=== PATIENT | female | born 1945 | race Caucasian/White ===

== ENCOUNTER 2017-11-29 15:40 | Inpatient (IN) ==
[2017-11-29] MEDS ORDERED: ALBUTEROL/IPRATROPIUM 3 ML NEB RESP TX PRN (16:11)
[2017-11-29 16:32] LABS: Basophils % 0.4 % (0.0-0.8); Eosinophils # 0.3 10*3/uL (0.0-0.87); Hematocrit 37.8 VOL% (35.7-47.0); Hemoglobin 12.5 GM/DL (12.0-16.0); Immature Granulocytes % 0.4 %; Immature Granulocytes Absolute 0.04 #; Lymphocytes # 1.4 10*3/uL (1.4-4.0); Lymphocytes % 14.3 % (21.3-54.2); Mean Corpuscular HGB Conc 33.1 GM/DL (32-36); Mean Corpuscular Hemoglobin 30 PG (27-34); Mean Corpuscular Volume 90.6 FL (87-102); Mean Platelet Volume 9.8 FL (9.6-12.0); Monocytes # 0.5 10*3/uL (0.11-0.8); Monocytes % 5.2 % (1.7-12.7); Neutrophils # 7.5 10*3/uL (1.4-7.4); Neutrophils % 76.7 % (38.7-73.9); Platelet Count 243 T/CUMM (130-400); Red Blood Count 4.17 MC/CUMM (3.8-5.5); Red Cell Distribution Width 14.8 % (9.3-17.3); White Blood Count 9.7 T/CUMM (4-12)
[2017-11-29 17:01] LABS: Albumin 3.6 G/DL (3.4-5.0); Bilirubin,Total 0.5 MG/DL (0.2-1.0); Calcium 9.1 MG/DL (8.5-10.1); Magnesium 2.1 MG/DL (1.8-2.4); Potassium 4.1 MMOL/L (3.5-5.1); Thyroid Stimulating Hormone 0.412 uIU/ml (0.358-3.74); Total Protein 6.8 G/DL (6.4-8.3)
[2017-11-29] MEDS: DEXTROSE 5% NACL 0.45% 1,000 ML IV SCH (17:18)
[2017-11-29] MEDS: LEVOFLOXACIN INJ 500 MG in PREMIX 1 EACH IV SCH (17:18)
[2017-11-29] MEDS: cefTAZidime 1,000 MG in SYRINGE 1 EACH IV SCH (18:11)
[2017-11-29] MEDS: ALBUTEROL/IPRATROPIUM 3 ML NEB RESP TX SCH (19:48)
[2017-11-29] MEDS: DORNASE ALFA 2.5 MG/2.5 ML VIAL RESP TX SCH (19:54)
[2017-11-29 20:05] LABS: Apearance,Urine CLEAR (Clear); Bilirubin,Urine Negative (Negative); Blood, Urine Negative (Negative); Glucose,Urine (UA) Negative (Negative); Ketones,Urine Negative (Negative); Nitrite,Urine Negative (Negative); Protein,Urine Negative; RBC,Urine 1 /HPF (0-4); Urine Color Straw (Yellow); Urine Specific Gravity 1.004 (1.001-1.035); Urine Urobilinogen < 2.0 EU/DL (0.2-1.0); WBC,Urine <1 /HPF (0-6)
[2017-11-29] MEDS ORDERED: ALBUTEROL/IPRATROPIUM 3 ML NEB RESP TX SCH (21:00)
[2017-11-29] MEDS: MAGNESIUM CHLORIDE 64 MG TABLET PO SCH (22:06)
[2017-11-29] MEDS: CALCIUM (CARBONATE) 600 MG TABLET PO SCH (22:06)
[2017-11-29] MEDS: GABAPENTIN 300 MG CAPSULE PO SCH (22:06)
[2017-11-29] MEDS: TEMAZEPAM 15 MG CAPSULE PO SCH (22:07)
[2017-11-29] MEDS: ATORVASTATIN 40 MG TABLET PO SCH (22:07)
[2017-11-29] MEDS: GLUCOSAMINE 500 MG TABLET PO SCH (22:07)
[2017-11-29] MEDS: TAMSULOSIN 0.4 MG CAPSULE PO SCH (22:07)
[2017-11-29] MEDS: PANTOPRAZOLE 40 MG TABLET PO SCH (22:08)
[2017-11-30] MEDS: ALBUTEROL/IPRATROPIUM 3 ML NEB RESP TX SCH ×4 (00:40→19:24)
[2017-11-30] MEDS: cefTAZidime 1,000 MG in SYRINGE 1 EACH IV SCH ×2 (01:20→10:09)
[2017-11-30] MEDS: DEXTROSE 5% NACL 0.45% 1,000 ML IV SCH ×3 (02:19→16:29)
[2017-11-30] MEDS: LEVOTHYROXINE 100 MCG TABLET PO SCH (05:53)
[2017-11-30] MEDS: DORNASE ALFA 2.5 MG/2.5 ML VIAL RESP TX SCH ×2 (07:18→19:24)
[2017-11-30 07:19] LABS: Basophils % 0.4 % (0.0-0.8); Eosinophils # 0.3 10*3/uL (0.0-0.87); Eosinophils % 4.1 % (0.00-10.9); Hematocrit 34.1 VOL% (35.7-47.0); Immature Granulocytes % 0.4 %; Immature Granulocytes Absolute 0.03 #; Lymphocytes # 1.2 10*3/uL (1.4-4.0); Lymphocytes % 15.1 % (21.3-54.2); Mean Corpuscular HGB Conc 32.3 GM/DL (32-36); Mean Corpuscular Hemoglobin 30 PG (27-34); Mean Corpuscular Volume 92.2 FL (87-102); Mean Platelet Volume 10.2 FL (9.6-12.0); Monocytes # 0.5 10*3/uL (0.11-0.8); Monocytes % 6.5 % (1.7-12.7); Neutrophils % 73.5 % (38.7-73.9); Platelet Count 196 T/CUMM (130-400); Red Cell Distribution Width 14.9 % (9.3-17.3); White Blood Count 8.1 T/CUMM (4-12)
[2017-11-30 07:42] LABS: Calcium 8.4 MG/DL (8.5-10.1); Magnesium 2.1 MG/DL (1.8-2.4); Osmolality,Calculated 281.1 MOS/KG (273-304); Potassium 3.6 MMOL/L (3.5-5.1)
[2017-11-30] MEDS ORDERED: NON-FORMULARY MEDICATION (Ticagrelor [Brilinta] 60 MG) PO SCH (09:00)
[2017-11-30] MEDS: MONTELUKAST 10 MG TABLET PO SCH (09:57)
[2017-11-30] MEDS: DILTIAZEM 60 MG TABLET PO SCH (09:57)
[2017-11-30] MEDS: FLUoxetine 20 MG CAPSULE PO SCH (09:57)
[2017-11-30] MEDS: GABAPENTIN 100 MG CAPSULE PO SCH (09:57)
[2017-11-30] MEDS: FOLIC ACID 1 MG TABLET PO SCH (09:57)
[2017-11-30] MEDS: PANTOPRAZOLE 40 MG TABLET PO SCH ×2 (09:58→21:06)
[2017-11-30] MEDS: TAMSULOSIN 0.4 MG CAPSULE PO SCH ×2 (09:58→21:04)
[2017-11-30] MEDS: GLUCOSAMINE 500 MG TABLET PO SCH ×2 (09:58→21:04)
[2017-11-30] MEDS: MULTIVITAMIN (CENTRUM) TABLET PO SCH (09:58)
[2017-11-30] MEDS: CALCIUM (CARBONATE) 600 MG TABLET PO SCH ×2 (09:58→21:03)
[2017-11-30] MEDS: ASPIRIN CHEW 81 MG TABLET PO SCH (09:58)
[2017-11-30] MEDS: LEVOFLOXACIN INJ 500 MG in PREMIX 1 EACH IV SCH (16:28)
[2017-11-30] MEDS: ATORVASTATIN 40 MG TABLET PO SCH (21:05)
[2017-11-30] MEDS: GABAPENTIN 300 MG CAPSULE PO SCH (21:06)
[2017-11-30] MEDS: TEMAZEPAM 15 MG CAPSULE PO SCH (21:08)
[2017-11-30] MEDS: MAGNESIUM CHLORIDE 64 MG TABLET PO SCH (21:09)
[2017-12-01] MEDS: ALBUTEROL/IPRATROPIUM 3 ML NEB RESP TX SCH ×4 (02:23→19:33)
[2017-12-01] MEDS: DEXTROSE 5% NACL 0.45% 1,000 ML IV SCH ×3 (05:03→16:45)
[2017-12-01] MEDS: LEVOTHYROXINE 100 MCG TABLET PO SCH (06:31)
[2017-12-01] MEDS: DORNASE ALFA 2.5 MG/2.5 ML VIAL RESP TX SCH ×2 (07:26→19:37)
[2017-12-01] MEDS: GLUCOSAMINE 500 MG TABLET PO SCH ×2 (09:44→21:01)
[2017-12-01] MEDS: FLUoxetine 20 MG CAPSULE PO SCH (09:44)
[2017-12-01] MEDS: MONTELUKAST 10 MG TABLET PO SCH (09:44)
[2017-12-01] MEDS: CALCIUM (CARBONATE) 600 MG TABLET PO SCH ×2 (09:44→21:01)
[2017-12-01] MEDS: TAMSULOSIN 0.4 MG CAPSULE PO SCH ×2 (09:45→21:01)
[2017-12-01] MEDS: FOLIC ACID 1 MG TABLET PO SCH (09:45)
[2017-12-01] MEDS: GABAPENTIN 100 MG CAPSULE PO SCH (09:45)
[2017-12-01] MEDS: DILTIAZEM 60 MG TABLET PO SCH (09:45)
[2017-12-01] MEDS: MULTIVITAMIN (CENTRUM) TABLET PO SCH (09:45)
[2017-12-01] MEDS: ASPIRIN CHEW 81 MG TABLET PO SCH (09:46)
[2017-12-01] MEDS: PANTOPRAZOLE 40 MG TABLET PO SCH ×2 (09:46→21:01)
[2017-12-01] MEDS: LEVOFLOXACIN INJ 500 MG in PREMIX 1 EACH IV SCH (16:40)
[2017-12-01] MEDS: ATORVASTATIN 40 MG TABLET PO SCH (21:01)
[2017-12-01] MEDS: MAGNESIUM CHLORIDE 64 MG TABLET PO SCH (21:01)
[2017-12-01] MEDS: TEMAZEPAM 15 MG CAPSULE PO SCH (21:01)
[2017-12-01] MEDS: GABAPENTIN 300 MG CAPSULE PO SCH (21:01)
[2017-12-02] MEDS: ALBUTEROL/IPRATROPIUM 3 ML NEB RESP TX SCH ×4 (01:02→19:16)
[2017-12-02] MEDS: DEXTROSE 5% NACL 0.45% 1,000 ML IV SCH ×2 (02:20→12:08)
[2017-12-02] MEDS: LEVOTHYROXINE 100 MCG TABLET PO SCH (06:04)
[2017-12-02] MEDS: DORNASE ALFA 2.5 MG/2.5 ML VIAL RESP TX SCH ×2 (07:33→19:16)
[2017-12-02] MEDS: DILTIAZEM 60 MG TABLET PO SCH (09:16)
[2017-12-02] MEDS: MONTELUKAST 10 MG TABLET PO SCH (09:17)
[2017-12-02] MEDS: GLUCOSAMINE 500 MG TABLET PO SCH ×2 (09:17→20:35)
[2017-12-02] MEDS: CALCIUM (CARBONATE) 600 MG TABLET PO SCH ×2 (09:17→20:36)
[2017-12-02] MEDS: PANTOPRAZOLE 40 MG TABLET PO SCH ×2 (09:18→20:36)
[2017-12-02] MEDS: ASPIRIN CHEW 81 MG TABLET PO SCH (09:18)
[2017-12-02] MEDS: GABAPENTIN 100 MG CAPSULE PO SCH (09:18)
[2017-12-02] MEDS: FOLIC ACID 1 MG TABLET PO SCH (09:18)
[2017-12-02] MEDS: MULTIVITAMIN (CENTRUM) TABLET PO SCH (09:18)
[2017-12-02] MEDS: TAMSULOSIN 0.4 MG CAPSULE PO SCH ×2 (09:18→20:36)
[2017-12-02] MEDS: FLUoxetine 20 MG CAPSULE PO SCH (09:18)
[2017-12-02] MEDS: LEVOFLOXACIN INJ 500 MG in PREMIX 1 EACH IV SCH (19:27)
[2017-12-02] MEDS: TEMAZEPAM 15 MG CAPSULE PO SCH (20:36)
[2017-12-02] MEDS: MAGNESIUM CHLORIDE 64 MG TABLET PO SCH (20:36)
[2017-12-02] MEDS: ATORVASTATIN 40 MG TABLET PO SCH (20:36)
[2017-12-02] MEDS: GABAPENTIN 300 MG CAPSULE PO SCH (20:36)
[2017-12-03] MEDS: ALBUTEROL/IPRATROPIUM 3 ML NEB RESP TX SCH ×4 (01:00→19:19)
[2017-12-03] MEDS: LEVOTHYROXINE 100 MCG TABLET PO SCH (06:17)
[2017-12-03 07:03] LABS: Basophils # 0.1 10*3/uL (0.0-0.2); Basophils % 0.6 % (0.0-0.8); Eosinophils # 0.5 10*3/uL (0.0-0.87); Hematocrit 36.1 VOL% (35.7-47.0); Hemoglobin 11.6 GM/DL (12.0-16.0); Immature Granulocytes % 0.4 %; Immature Granulocytes Absolute 0.03 #; Lymphocytes # 1.4 10*3/uL (1.4-4.0); Mean Corpuscular HGB Conc 32.1 GM/DL (32-36); Mean Corpuscular Hemoglobin 30 PG (27-34); Mean Platelet Volume 10.3 FL (9.6-12.0); Monocytes # 0.6 10*3/uL (0.11-0.8); Monocytes % 7.7 % (1.7-12.7); Neutrophils # 5.2 10*3/uL (1.4-7.4); Neutrophils % 67.3 % (38.7-73.9); Platelet Count 196 T/CUMM (130-400); Red Blood Count 3.88 MC/CUMM (3.8-5.5); Red Cell Distribution Width 15.5 % (9.3-17.3); White Blood Count 7.8 T/CUMM (4-12)
[2017-12-03 07:09] LABS: PT Patient Result 10.5 SECS; Partial Thromboplastin Time 27.1 SECS (0-40)
[2017-12-03] MEDS ORDERED: BENZONATATE 100 MG CAPSULE PO ONE (07:30)
[2017-12-03] MEDS ORDERED: diphenhydrAMINE 50 MG/1 ML VIAL IM ONE (07:30)
[2017-12-03] MEDS ORDERED: LIDOCAINE 1% 20 ML VIAL MISC INJ ONE (08:00)
[2017-12-03] MEDS ORDERED: LIDOCAINE 2% VISCOUS 100 ML BOTTLE SWISH/SPIT ONE (08:00)
[2017-12-03] MEDS ORDERED: MIDAZOLAM 2 MG/2 ML VIAL IV ONE (08:00)
[2017-12-03] MEDS ORDERED: LIDOCAINE 2% 20 ML VIAL RESP TX ONE (08:00)
[2017-12-03] MEDS: DORNASE ALFA 2.5 MG/2.5 ML VIAL RESP TX SCH ×2 (08:15→19:19)
[2017-12-03] MEDS ORDERED: METHOTREXATE 2.5 MG TABLET PO SCH (09:00)
[2017-12-03] MEDS ORDERED: MIDAZOLAM 2 MG/2 ML VIAL ONE (09:39)
[2017-12-03] MEDS: MULTIVITAMIN (CENTRUM) TABLET PO SCH (12:45)
[2017-12-03] MEDS: DILTIAZEM 60 MG TABLET PO SCH (12:45)
[2017-12-03] MEDS: FLUoxetine 20 MG CAPSULE PO SCH (12:46)
[2017-12-03] MEDS: ASPIRIN CHEW 81 MG TABLET PO SCH (12:46)
[2017-12-03] MEDS: CALCIUM (CARBONATE) 600 MG TABLET PO SCH ×2 (12:46→20:49)
[2017-12-03] MEDS: GLUCOSAMINE 500 MG TABLET PO SCH ×2 (12:46→20:50)
[2017-12-03] MEDS: MONTELUKAST 10 MG TABLET PO SCH (12:46)
[2017-12-03] MEDS: FOLIC ACID 1 MG TABLET PO SCH (12:46)
[2017-12-03] MEDS: TAMSULOSIN 0.4 MG CAPSULE PO SCH ×2 (12:46→20:50)
[2017-12-03] MEDS: PANTOPRAZOLE 40 MG TABLET PO SCH ×2 (12:46→20:50)
[2017-12-03] MEDS: GABAPENTIN 100 MG CAPSULE PO SCH (12:57)
[2017-12-03] MEDS: MEROPENEM 1,000 MG in SYRINGE 1 EACH IV SCH ×2 (14:40→20:51)
[2017-12-03] MEDS: ATORVASTATIN 40 MG TABLET PO SCH (20:49)
[2017-12-03] MEDS: TEMAZEPAM 15 MG CAPSULE PO SCH (20:50)
[2017-12-03] MEDS: GABAPENTIN 300 MG CAPSULE PO SCH (20:50)
[2017-12-03] MEDS: MAGNESIUM CHLORIDE 64 MG TABLET PO SCH (20:50)
[2017-12-04] MEDS: ALBUTEROL/IPRATROPIUM 3 ML NEB RESP TX SCH ×4 (00:14→19:14)
[2017-12-04] MEDS: MEROPENEM 1,000 MG in SYRINGE 1 EACH IV SCH ×3 (04:05→20:39)
[2017-12-04] MEDS: LEVOTHYROXINE 100 MCG TABLET PO SCH (06:02)
[2017-12-04] MEDS: DORNASE ALFA 2.5 MG/2.5 ML VIAL RESP TX SCH ×2 (08:11→19:26)
[2017-12-04] MEDS: FOLIC ACID 1 MG TABLET PO SCH (09:17)
[2017-12-04] MEDS: MULTIVITAMIN (CENTRUM) TABLET PO SCH (09:17)
[2017-12-04] MEDS: CALCIUM (CARBONATE) 600 MG TABLET PO SCH ×2 (09:17→20:38)
[2017-12-04] MEDS: PANTOPRAZOLE 40 MG TABLET PO SCH ×2 (09:17→20:39)
[2017-12-04] MEDS: TAMSULOSIN 0.4 MG CAPSULE PO SCH ×2 (09:17→20:38)
[2017-12-04] MEDS: GLUCOSAMINE 500 MG TABLET PO SCH ×2 (09:17→20:38)
[2017-12-04] MEDS: GABAPENTIN 100 MG CAPSULE PO SCH (09:17)
[2017-12-04] MEDS: FLUoxetine 20 MG CAPSULE PO SCH (09:17)
[2017-12-04] MEDS: DILTIAZEM 60 MG TABLET PO SCH (09:17)
[2017-12-04] MEDS: ASPIRIN CHEW 81 MG TABLET PO SCH (16:38)
[2017-12-04] MEDS: MONTELUKAST 10 MG TABLET PO SCH (16:38)
[2017-12-04] MEDS: MAGNESIUM CHLORIDE 64 MG TABLET PO SCH (20:38)
[2017-12-04] MEDS: TEMAZEPAM 15 MG CAPSULE PO SCH (20:38)
[2017-12-04] MEDS: GABAPENTIN 300 MG CAPSULE PO SCH (20:38)
[2017-12-04] MEDS: DOCUSATE SODIUM 100 MG CAPSULE PO SCH (20:39)
[2017-12-04] MEDS: ATORVASTATIN 40 MG TABLET PO SCH (20:39)
[2017-12-05] MEDS: ALBUTEROL/IPRATROPIUM 3 ML NEB RESP TX SCH ×4 (00:29→20:10)
[2017-12-05] MEDS: MEROPENEM 1,000 MG in SYRINGE 1 EACH IV SCH ×3 (04:30→20:27)
[2017-12-05] MEDS: LEVOTHYROXINE 100 MCG TABLET PO SCH (06:13)
[2017-12-05] MEDS: DORNASE ALFA 2.5 MG/2.5 ML VIAL RESP TX SCH ×2 (07:38→20:10)
[2017-12-05] MEDS: MONTELUKAST 10 MG TABLET PO SCH (09:16)
[2017-12-05] MEDS: MULTIVITAMIN (CENTRUM) TABLET PO SCH (09:16)
[2017-12-05] MEDS: FOLIC ACID 1 MG TABLET PO SCH (09:16)
[2017-12-05] MEDS: DILTIAZEM 60 MG TABLET PO SCH (09:16)
[2017-12-05] MEDS: GLUCOSAMINE 500 MG TABLET PO SCH ×2 (09:17→20:26)
[2017-12-05] MEDS: FLUoxetine 20 MG CAPSULE PO SCH (09:17)
[2017-12-05] MEDS: GABAPENTIN 100 MG CAPSULE PO SCH (09:17)
[2017-12-05] MEDS: CALCIUM (CARBONATE) 600 MG TABLET PO SCH ×2 (09:17→20:26)
[2017-12-05] MEDS: ASPIRIN CHEW 81 MG TABLET PO SCH (09:17)
[2017-12-05] MEDS: TAMSULOSIN 0.4 MG CAPSULE PO SCH ×2 (09:17→20:26)
[2017-12-05] MEDS: PANTOPRAZOLE 40 MG TABLET PO SCH ×2 (09:17→20:26)
[2017-12-05] MEDS: cefTAZidime 1,000 MG in SYRINGE 1 EACH IV SCH (17:02)
[2017-12-05] MEDS: GABAPENTIN 300 MG CAPSULE PO SCH (20:26)
[2017-12-05] MEDS: ATORVASTATIN 40 MG TABLET PO SCH (20:26)
[2017-12-05] MEDS: MAGNESIUM CHLORIDE 64 MG TABLET PO SCH (20:26)
[2017-12-05] MEDS: DOCUSATE SODIUM 100 MG CAPSULE PO SCH (20:26)
[2017-12-05] MEDS: TEMAZEPAM 15 MG CAPSULE PO SCH (20:27)
[2017-12-06] MEDS: ALBUTEROL/IPRATROPIUM 3 ML NEB RESP TX SCH ×3 (00:48→14:24)
[2017-12-06] MEDS: MEROPENEM 1,000 MG in SYRINGE 1 EACH IV SCH ×2 (03:48→11:47)
[2017-12-06] MEDS: cefTAZidime 1,000 MG in SYRINGE 1 EACH IV SCH ×2 (06:36→13:20)
[2017-12-06] MEDS: LEVOTHYROXINE 100 MCG TABLET PO SCH (06:36)
[2017-12-06] MEDS: DORNASE ALFA 2.5 MG/2.5 ML VIAL RESP TX SCH (07:32)
[2017-12-06] MEDS: GABAPENTIN 100 MG CAPSULE PO SCH (09:20)
[2017-12-06] MEDS: MONTELUKAST 10 MG TABLET PO SCH (09:20)
[2017-12-06] MEDS: FLUoxetine 20 MG CAPSULE PO SCH (09:20)
[2017-12-06] MEDS: DILTIAZEM 60 MG TABLET PO SCH (09:21)
[2017-12-06] MEDS: CALCIUM (CARBONATE) 600 MG TABLET PO SCH (09:21)
[2017-12-06] MEDS: PANTOPRAZOLE 40 MG TABLET PO SCH (09:21)
[2017-12-06] MEDS: ASPIRIN CHEW 81 MG TABLET PO SCH (09:21)
[2017-12-06] MEDS: FOLIC ACID 1 MG TABLET PO SCH (09:21)
[2017-12-06] MEDS: GLUCOSAMINE 500 MG TABLET PO SCH (09:21)
[2017-12-06] MEDS: MULTIVITAMIN (CENTRUM) TABLET PO SCH (09:21)
[2017-12-06] MEDS: TAMSULOSIN 0.4 MG CAPSULE PO SCH (09:21)
[2017-12-06] MEDS ORDERED: ENOXAPARIN 40 MG/0.4 ML SYRINGE SUBCUT ONE (11:15)
[2017-12-06 16:39] VITALS: BP 148/64
== END 2017-12-06 14:15 | disposition home or self-care (01) | DRG 166 ==
LOC: N.5E 16:01
PROVIDERS: ADMIT Internal Medicine Pulmonary Disease; ATTEND Internal Medicine Pulmonary Disease

== ENCOUNTER 2018-08-23 11:36 | Inpatient (IN) ==
[2018-08-23] MEDS ORDERED: ALBUTEROL/IPRATROPIUM 3 ML NEB RESP TX PRN (11:40)
[2018-08-23] MEDS ORDERED: POTASSIUM CHLORIDE RIDER 10 MEQ in PREMIX 1 EACH IV PRN (11:53)
[2018-08-23] MEDS ORDERED: DEXTROSE 5% NACL 0.45% 1,000 ML IV SCH (12:00)
[2018-08-23 12:37] LABS: Calcium 9.1 MG/DL (8.5-10.1); Osmolality,Calculated 281.1 MOS/KG (273-304)
[2018-08-23] MEDS ORDERED: DILTIAZEM CD 240 MG CAPSULE PO ONE (13:09)
[2018-08-23] MEDS: FUROSEMIDE 20 MG/2 ML VIAL IV SCH (13:48)
[2018-08-23] MEDS: cefTAZidime 1,000 MG in SYRINGE 1 EACH IV SCH ×2 (13:49→22:21)
[2018-08-23] MEDS: MEROPENEM 500 MG in SODIUM CHLORIDE 0.9% 100 ML IV SCH ×2 (13:54→21:10)
[2018-08-23] MEDS ORDERED: INFLUENZA VIRUS VACCINE 0.5 ML SYRINGE IM ONE (14:24)
[2018-08-23] MEDS: ALBUTEROL/IPRATROPIUM 3 ML NEB RESP TX SCH ×2 (14:57→19:09)
[2018-08-23] MEDS ORDERED: POTASSIUM IODIDE ORAL SOLN 1,000 MG/ML BOTTLE PO SCH (15:00)
[2018-08-23] MEDS: POTASSIUM CHLORIDE 20 MEQ TABLET PO PRN ×2 (15:45→21:27)
[2018-08-23] MEDS: APIXABAN 5 MG TABLET PO SCH ×2 (15:45→21:05)
[2018-08-23] MEDS ORDERED: DILTIAZEM 100 MG VIAL.ADD IV ONE (16:28)
[2018-08-23] MEDS ORDERED: DIGOXIN 0.5 MG/2 ML AMP IV ONE (17:27)
[2018-08-23] MEDS: DILTIAZEM INJ 100 MG in SODIUM CHLORIDE 0.9% 100 ML IV SCH (18:11)
[2018-08-23] MEDS: DEXT 5% NACL 0.45% KCL 20 MEQ 20 MEQ/1,000 ML BAG IV SCH (18:12)
[2018-08-23] MEDS: DORNASE ALFA 2.5 MG/2.5 ML VIAL RESP TX SCH (19:09)
[2018-08-23 19:13] LABS: Apearance,Urine CLEAR (Clear); Bilirubin,Urine Negative (Negative); Blood, Urine Negative (Negative); Glucose,Urine (UA) Negative (Negative); Ketones,Urine Negative (Negative); Mucus,Urine Occasional /LPF (Occasional); Nitrite,Urine Negative (Negative); Protein,Urine Negative; RBC,Urine 1 /HPF (0-4); Squamous Epithelial Cell,Urine Occasional /HPF (0-10); Urine Color Yellow (Yellow); Urine Specific Gravity 1.006 (1.001-1.035); Urine Urobilinogen < 2.0 EU/DL (0.2-1.0); WBC,Urine 7 /HPF (0-6)
[2018-08-23] MEDS ORDERED: NON-FORMULARY MEDICATION (Gluc Su/Chondro Su A/Vit C/Mn [Glucosamine Chondroitin Tab] 1 EA PO SCH (21:00)
[2018-08-23] MEDS ORDERED: TICAGRELOR 60 MG PO SCH (21:00)
[2018-08-23] MEDS ORDERED: DILTIAZEM CD 240 MG CAPSULE PO SCH (21:00)
[2018-08-23] MEDS ORDERED: DILTIAZEM CD 180 MG CAPSULE PO SCH (21:00)
[2018-08-23] MEDS ORDERED: METOPROLOL TARTRATE 25 MG TABLET PO SCH (21:00)
[2018-08-23] MEDS: CALCIUM (CARBONATE) 600 MG TABLET PO SCH (21:05)
[2018-08-23] MEDS: TAMSULOSIN 0.4 MG CAPSULE PO SCH (21:06)
[2018-08-23] MEDS: ATORVASTATIN 20 MG TABLET PO SCH (21:06)
[2018-08-23] MEDS: MAGNESIUM CHLORIDE 64 MG TABLET PO SCH (21:07)
[2018-08-23] MEDS: GABAPENTIN 300 MG CAPSULE PO SCH (21:07)
[2018-08-23] MEDS: PANTOPRAZOLE 40 MG TABLET PO SCH (21:07)
[2018-08-23] MEDS: BUDESONIDE/FORMOTEROL 160-4.5 INHALER 6 GM INH SCH (21:08)
[2018-08-24] MEDS: POTASSIUM CHLORIDE 20 MEQ TABLET PO PRN ×2 (00:06→02:25)
[2018-08-24 03:34] LABS: Basophils # 0.1 10*3/uL (0.0-0.2); Basophils % 0.4 % (0.0-0.8); Eosinophils # 0.2 10*3/uL (0.0-0.87); Eosinophils % 1.6 % (0.00-10.9); Hematocrit 34.9 VOL% (35.7-47.0); Hemoglobin 10.6 GM/DL (12.0-16.0); Immature Granulocytes % 0.5 %; Immature Granulocytes Absolute 0.07 #; Lymphocytes # 0.8 10*3/uL (1.4-4.0); Lymphocytes % 6.3 % (21.3-54.2); Mean Corpuscular HGB Conc 30.4 GM/DL (32-36); Mean Corpuscular Hemoglobin 27 PG (27-34); Mean Corpuscular Volume 89.3 FL (87-102); Mean Platelet Volume 10.5 FL (9.6-12.0); Monocytes # 1.3 10*3/uL (0.11-0.8); NRBC # 0.02 10*3/uL; Neutrophils # 10.9 10*3/uL (1.4-7.4); Neutrophils % 81.2 % (38.7-73.9); Platelet Count 197 T/CUMM (130-400); Red Blood Count 3.91 MC/CUMM (3.8-5.5); Red Cell Distribution Width 19.6 % (9.3-17.3); White Blood Count 13.4 T/CUMM (4-12)
[2018-08-24 03:57] LABS: Calcium 8.1 MG/DL (8.5-10.1); Osmolality,Calculated 282.3 MOS/KG (273-304); Potassium 3.8 MMOL/L (3.5-5.1)
[2018-08-24 04:06] LABS: Free T4 (Free Thyroxine) 1.24 NG/DL (0.76-1.46); Thyroid Stimulating Hormone 5.72 uIU/ml (0.358-3.74)
[2018-08-24] MEDS: MEROPENEM 500 MG in SODIUM CHLORIDE 0.9% 100 ML IV SCH ×3 (05:35→21:21)
[2018-08-24] MEDS: LEVOTHYROXINE 100 MCG TABLET PO SCH (06:33)
[2018-08-24] MEDS: cefTAZidime 1,000 MG in SYRINGE 1 EACH IV SCH ×4 (06:35→21:21)
[2018-08-24] MEDS: ALBUTEROL/IPRATROPIUM 3 ML NEB RESP TX SCH ×4 (07:16→18:54)
[2018-08-24] MEDS: DORNASE ALFA 2.5 MG/2.5 ML VIAL RESP TX SCH ×2 (07:20→19:02)
[2018-08-24] MEDS: MONTELUKAST 10 MG TABLET PO SCH (09:10)
[2018-08-24] MEDS: TAMSULOSIN 0.4 MG CAPSULE PO SCH ×2 (09:11→21:19)
[2018-08-24] MEDS: APIXABAN 5 MG TABLET PO SCH ×2 (09:11→21:21)
[2018-08-24] MEDS: GABAPENTIN 100 MG CAPSULE PO SCH (09:11)
[2018-08-24] MEDS: MULTIVITAMIN (CENTRUM) TABLET PO SCH (09:11)
[2018-08-24] MEDS: PANTOPRAZOLE 40 MG TABLET PO SCH ×2 (09:11→21:20)
[2018-08-24] MEDS: FUROSEMIDE 20 MG/2 ML VIAL IV SCH (09:12)
[2018-08-24] MEDS: ASPIRIN CHEW 81 MG TABLET PO SCH (09:12)
[2018-08-24] MEDS: methylPREDNISolone SOD SUC 40 MG/1 ML VIAL IV SCH ×2 (09:12→17:10)
[2018-08-24] MEDS: CALCIUM (CARBONATE) 600 MG TABLET PO SCH ×2 (09:12→21:21)
[2018-08-24] MEDS: FOLIC ACID 1 MG TABLET PO SCH (09:12)
[2018-08-24] MEDS: FLUoxetine 20 MG CAPSULE PO SCH (09:12)
[2018-08-24] MEDS: BUDESONIDE/FORMOTEROL 160-4.5 INHALER 6 GM INH SCH ×2 (09:15→21:20)
[2018-08-24] MEDS ORDERED: MAGNESIUM SULF RIDER 2 GM in PREMIX 1 EACH IV PRN (09:40)
[2018-08-24] MEDS ORDERED: MAGNESIUM SULF RIDER 4 GM in PREMIX 1 EACH IV PRN (09:40)
[2018-08-24] MEDS: DIGOXIN 0.125 MG TABLET PO SCH (12:36)
[2018-08-24] MEDS: DEXT 5% NACL 0.45% KCL 20 MEQ 20 MEQ/1,000 ML BAG IV SCH (12:37)
[2018-08-24] MEDS: DILTIAZEM 30 MG TABLET PO SCH ×2 (14:08→21:20)
[2018-08-24] MEDS: DILTIAZEM INJ 100 MG in SODIUM CHLORIDE 0.9% 100 ML IV SCH ×3 (15:04→21:22)
[2018-08-24] MEDS: ATORVASTATIN 20 MG TABLET PO SCH (21:19)
[2018-08-24] MEDS: MAGNESIUM CHLORIDE 64 MG TABLET PO SCH (21:20)
[2018-08-24] MEDS: GABAPENTIN 300 MG CAPSULE PO SCH (21:20)
[2018-08-25] MEDS: methylPREDNISolone SOD SUC 40 MG/1 ML VIAL IV SCH ×3 (00:48→17:18)
[2018-08-25] MEDS: DILTIAZEM INJ 100 MG in SODIUM CHLORIDE 0.9% 100 ML IV SCH ×3 (03:35→18:09)
[2018-08-25 03:45] LABS: Basophils % 0.1 % (0.0-0.8); Hematocrit 33.4 VOL% (35.7-47.0); Hemoglobin 10.2 GM/DL (12.0-16.0); Immature Granulocytes % 0.6 %; Immature Granulocytes Absolute 0.08 #; Lymphocytes # 0.3 10*3/uL (1.4-4.0); Lymphocytes % 1.8 % (21.3-54.2); Mean Corpuscular HGB Conc 30.5 GM/DL (32-36); Mean Corpuscular Hemoglobin 27 PG (27-34); Mean Corpuscular Volume 88.1 FL (87-102); Mean Platelet Volume 10.9 FL (9.6-12.0); Monocytes # 0.5 10*3/uL (0.11-0.8); Monocytes % 3.7 % (1.7-12.7); Neutrophils # 13.3 10*3/uL (1.4-7.4); Neutrophils % 93.8 % (38.7-73.9); Platelet Count 190 T/CUMM (130-400); Red Blood Count 3.79 MC/CUMM (3.8-5.5); Red Cell Distribution Width 19.6 % (9.3-17.3); White Blood Count 14.2 T/CUMM (4-12)
[2018-08-25 04:09] LABS: Calcium 8.3 MG/DL (8.5-10.1); Osmolality,Calculated 286.5 MOS/KG (273-304); Potassium 4.4 MMOL/L (3.5-5.1)
[2018-08-25 04:23] LABS: Lymphocytes 1 % (20-55); Platelet Estimate Adequate; Segmented Neutrophils 98 % (50-85); Total Cells Counted 100
[2018-08-25 04:24] LABS: Polychromasia Few
[2018-08-25] MEDS: MEROPENEM 500 MG in SODIUM CHLORIDE 0.9% 100 ML IV SCH ×3 (05:14→22:49)
[2018-08-25] MEDS: cefTAZidime 1,000 MG in SYRINGE 1 EACH IV SCH ×3 (06:41→22:49)
[2018-08-25] MEDS: LEVOTHYROXINE 100 MCG TABLET PO SCH (06:43)
[2018-08-25] MEDS: ALBUTEROL/IPRATROPIUM 3 ML NEB RESP TX SCH ×4 (07:26→19:16)
[2018-08-25] MEDS: DORNASE ALFA 2.5 MG/2.5 ML VIAL RESP TX SCH ×2 (07:33→19:16)
[2018-08-25] MEDS: FUROSEMIDE 20 MG/2 ML VIAL IV SCH (08:14)
[2018-08-25] MEDS: MULTIVITAMIN (CENTRUM) TABLET PO SCH (08:14)
[2018-08-25] MEDS: TAMSULOSIN 0.4 MG CAPSULE PO SCH ×2 (08:14→21:08)
[2018-08-25] MEDS: CALCIUM (CARBONATE) 600 MG TABLET PO SCH ×2 (08:14→21:08)
[2018-08-25] MEDS: PANTOPRAZOLE 40 MG TABLET PO SCH ×2 (08:14→21:08)
[2018-08-25] MEDS: APIXABAN 5 MG TABLET PO SCH ×2 (08:14→21:08)
[2018-08-25] MEDS: ASPIRIN CHEW 81 MG TABLET PO SCH (08:15)
[2018-08-25] MEDS: FOLIC ACID 1 MG TABLET PO SCH (08:15)
[2018-08-25] MEDS: MONTELUKAST 10 MG TABLET PO SCH (08:15)
[2018-08-25] MEDS: BUDESONIDE/FORMOTEROL 160-4.5 INHALER 6 GM INH SCH ×2 (08:15→21:09)
[2018-08-25] MEDS: GABAPENTIN 100 MG CAPSULE PO SCH (08:15)
[2018-08-25] MEDS: FLUoxetine 20 MG CAPSULE PO SCH (08:15)
[2018-08-25] MEDS: DILTIAZEM 30 MG TABLET PO SCH (08:15)
[2018-08-25] MEDS: DILTIAZEM CD 180 MG CAPSULE PO SCH ×2 (08:47→21:09)
[2018-08-25] MEDS: DEXT 5% NACL 0.45% KCL 20 MEQ 20 MEQ/1,000 ML BAG IV SCH (10:01)
[2018-08-25] MEDS: DIGOXIN 0.125 MG TABLET PO SCH (12:42)
[2018-08-25] MEDS: MAGNESIUM CHLORIDE 64 MG TABLET PO SCH (21:08)
[2018-08-25] MEDS: ATORVASTATIN 20 MG TABLET PO SCH (21:08)
[2018-08-25] MEDS: GABAPENTIN 300 MG CAPSULE PO SCH (21:09)
[2018-08-26] MEDS: DILTIAZEM INJ 100 MG in SODIUM CHLORIDE 0.9% 100 ML IV SCH ×2 (00:59→07:24)
[2018-08-26] MEDS: methylPREDNISolone SOD SUC 40 MG/1 ML VIAL IV SCH ×3 (00:59→16:56)
[2018-08-26 03:44] LABS: Basophils % 0.1 % (0.0-0.8); Hematocrit 32.3 VOL% (35.7-47.0); Hemoglobin 10.2 GM/DL (12.0-16.0); Immature Granulocytes % 0.9 %; Immature Granulocytes Absolute 0.23 #; Lymphocytes # 0.3 10*3/uL (1.4-4.0); Lymphocytes % 1.1 % (21.3-54.2); Mean Corpuscular HGB Conc 31.6 GM/DL (32-36); Mean Corpuscular Hemoglobin 28 PG (27-34); Mean Corpuscular Volume 87.1 FL (87-102); Mean Platelet Volume 10.4 FL (9.6-12.0); Monocytes # 1.1 10*3/uL (0.11-0.8); Monocytes % 3.9 % (1.7-12.7); Neutrophils # 25.4 10*3/uL (1.4-7.4); Platelet Count 204 T/CUMM (130-400); Red Blood Count 3.71 MC/CUMM (3.8-5.5); Red Cell Distribution Width 19.7 % (9.3-17.3)
[2018-08-26 04:04] LABS: Calcium 8.6 MG/DL (8.5-10.1); Osmolality,Calculated 278.8 MOS/KG (273-304); Potassium 3.9 MMOL/L (3.5-5.1)
[2018-08-26 04:14] LABS: Band Neutrophils 5 % (0-10); Segmented Neutrophils 93 % (50-85); Total Cells Counted 100
[2018-08-26 04:15] LABS: Anisocytosis 1+; Hypochromasia 2+; Macrocytosis 1+; Platelet Estimate Normal; Polychromasia Few
[2018-08-26] MEDS: DEXT 5% NACL 0.45% KCL 20 MEQ 20 MEQ/1,000 ML BAG IV SCH ×2 (04:59→08:29)
[2018-08-26] MEDS: MEROPENEM 500 MG in SODIUM CHLORIDE 0.9% 100 ML IV SCH ×3 (05:30→21:28)
[2018-08-26] MEDS: cefTAZidime 1,000 MG in SYRINGE 1 EACH IV SCH ×3 (06:00→22:00)
[2018-08-26] MEDS: LEVOTHYROXINE 100 MCG TABLET PO SCH (06:38)
[2018-08-26] MEDS: ALBUTEROL/IPRATROPIUM 3 ML NEB RESP TX SCH ×4 (06:50→19:26)
[2018-08-26] MEDS: DORNASE ALFA 2.5 MG/2.5 ML VIAL RESP TX SCH ×2 (06:55→19:31)
[2018-08-26] MEDS: DILTIAZEM CD 180 MG CAPSULE PO SCH ×2 (08:31→21:27)
[2018-08-26] MEDS: PANTOPRAZOLE 40 MG TABLET PO SCH ×2 (08:31→21:27)
[2018-08-26] MEDS ORDERED: NEBIVOLOL 5 MG TABLET PO SCH (09:00)
[2018-08-26] MEDS ORDERED: METOPROLOL TARTRATE 25 MG TABLET PO ONE ×2 (09:09→14:13)
[2018-08-26] MEDS: CALCIUM (CARBONATE) 600 MG TABLET PO SCH ×2 (09:46→21:27)
[2018-08-26] MEDS: APIXABAN 5 MG TABLET PO SCH ×2 (09:47→21:27)
[2018-08-26] MEDS: FOLIC ACID 1 MG TABLET PO SCH (09:47)
[2018-08-26] MEDS: GABAPENTIN 100 MG CAPSULE PO SCH (09:47)
[2018-08-26] MEDS: FLUoxetine 20 MG CAPSULE PO SCH (09:47)
[2018-08-26] MEDS: MULTIVITAMIN (CENTRUM) TABLET PO SCH (09:47)
[2018-08-26] MEDS: MONTELUKAST 10 MG TABLET PO SCH (09:47)
[2018-08-26] MEDS: BUDESONIDE/FORMOTEROL 160-4.5 INHALER 6 GM INH SCH ×2 (09:48→21:28)
[2018-08-26] MEDS: ASPIRIN CHEW 81 MG TABLET PO SCH (09:48)
[2018-08-26] MEDS: TAMSULOSIN 0.4 MG CAPSULE PO SCH ×2 (09:48→21:28)
[2018-08-26] MEDS: FUROSEMIDE 20 MG/2 ML VIAL IV SCH (09:53)
[2018-08-26] MEDS: FUROSEMIDE 20 MG TABLET PO SCH (10:00)
[2018-08-26] MEDS: DIGOXIN 0.125 MG TABLET PO SCH (12:58)
[2018-08-26] MEDS ORDERED: METOPROLOL TARTRATE 25 MG TABLET PO SCH (21:00)
[2018-08-26] MEDS: MAGNESIUM CHLORIDE 64 MG TABLET PO SCH (21:27)
[2018-08-26] MEDS: ATORVASTATIN 20 MG TABLET PO SCH (21:27)
[2018-08-26] MEDS: GABAPENTIN 300 MG CAPSULE PO SCH (21:27)
[2018-08-26] MEDS: METOPROLOL TARTRATE 25 MG TABLET PO SCH (21:28)
[2018-08-27] MEDS: methylPREDNISolone SOD SUC 40 MG/1 ML VIAL IV SCH ×3 (01:20→16:10)
[2018-08-27 02:48] LABS: Calcium 8.3 MG/DL (8.5-10.1); Osmolality,Calculated 289.2 MOS/KG (273-304)
[2018-08-27 02:52] LABS: Potassium 6.2 MMOL/L (3.5-5.1)
[2018-08-27] MEDS: DEXT 5% NACL 0.45% KCL 20 MEQ 20 MEQ/1,000 ML BAG IV SCH (03:15)
[2018-08-27] MEDS: cefTAZidime 1,000 MG in SYRINGE 1 EACH IV SCH ×3 (05:23→21:50)
[2018-08-27] MEDS: MEROPENEM 500 MG in SODIUM CHLORIDE 0.9% 100 ML IV SCH ×3 (05:29→20:56)
[2018-08-27] MEDS ORDERED: DIAZEPAM 5 MG TABLET PO ONE (06:00)
[2018-08-27] MEDS: LEVOTHYROXINE 112 MCG TABLET PO SCH (06:24)
[2018-08-27] MEDS: ALBUTEROL/IPRATROPIUM 3 ML NEB RESP TX SCH ×4 (06:56→19:37)
[2018-08-27] MEDS ORDERED: SODIUM CHLORIDE 0.9% 1,000 ML IV SCH ×2 (07:00→07:30)
[2018-08-27] MEDS: DORNASE ALFA 2.5 MG/2.5 ML VIAL RESP TX SCH ×2 (07:01→19:37)
[2018-08-27] MEDS: METOPROLOL TARTRATE 25 MG TABLET PO SCH (08:03)
[2018-08-27] MEDS: DILTIAZEM CD 180 MG CAPSULE PO SCH (08:03)
[2018-08-27] MEDS: PANTOPRAZOLE 40 MG TABLET PO SCH ×2 (08:03→20:55)
[2018-08-27] MEDS: BUDESONIDE/FORMOTEROL 160-4.5 INHALER 6 GM INH SCH ×2 (08:09→21:08)
[2018-08-27] MEDS ORDERED: PROPOFOL 200 MG/20 ML VIAL IV ONE (09:48)
[2018-08-27] MEDS ORDERED: ETOMIDATE 40 MG/20 ML VIAL IV ONE (09:48)
[2018-08-27] MEDS: ALUMINUM/MAGNES/SIMETH MAX STR 30 ML UDCUP PO PRN ×3 (13:57→20:55)
[2018-08-27] MEDS: MONTELUKAST 10 MG TABLET PO SCH (14:41)
[2018-08-27] MEDS: MULTIVITAMIN (CENTRUM) TABLET PO SCH (14:41)
[2018-08-27] MEDS: CALCIUM (CARBONATE) 600 MG TABLET PO SCH ×2 (14:42→20:57)
[2018-08-27] MEDS: TAMSULOSIN 0.4 MG CAPSULE PO SCH ×2 (14:42→20:56)
[2018-08-27] MEDS: FOLIC ACID 1 MG TABLET PO SCH (14:43)
[2018-08-27] MEDS: ASPIRIN CHEW 81 MG TABLET PO SCH (14:43)
[2018-08-27] MEDS: APIXABAN 5 MG TABLET PO SCH ×2 (14:44→20:55)
[2018-08-27] MEDS: FLUoxetine 20 MG CAPSULE PO SCH (14:45)
[2018-08-27] MEDS: GABAPENTIN 100 MG CAPSULE PO SCH (14:45)
[2018-08-27] MEDS: FUROSEMIDE 20 MG TABLET PO SCH (14:45)
[2018-08-27] MEDS: ATORVASTATIN 20 MG TABLET PO SCH (20:55)
[2018-08-27] MEDS: MAGNESIUM CHLORIDE 64 MG TABLET PO SCH (20:55)
[2018-08-27] MEDS: GABAPENTIN 300 MG CAPSULE PO SCH (20:55)
[2018-08-28] MEDS: ALUMINUM/MAGNES/SIMETH MAX STR 30 ML UDCUP PO PRN ×2 (01:05→05:16)
[2018-08-28] MEDS: methylPREDNISolone SOD SUC 40 MG/1 ML VIAL IV SCH ×3 (01:05→16:32)
[2018-08-28 03:22] LABS: Basophils # 0.1 10*3/uL (0.0-0.2); Basophils % 0.2 % (0.0-0.8); Hematocrit 34.3 VOL% (35.7-47.0); Hemoglobin 10.7 GM/DL (12.0-16.0); Immature Granulocytes Absolute 0.69 #; Lymphocytes # 0.3 10*3/uL (1.4-4.0); Mean Corpuscular HGB Conc 31.2 GM/DL (32-36); Mean Corpuscular Hemoglobin 27 PG (27-34); Mean Corpuscular Volume 87.3 FL (87-102); Mean Platelet Volume 10.9 FL (9.6-12.0); Monocytes # 3.7 10*3/uL (0.11-0.8); Monocytes % 10.8 % (1.7-12.7); NRBC # 0.03 10*3/uL; Neutrophils # 29.5 10*3/uL (1.4-7.4); Platelet Count 178 T/CUMM (130-400); Red Blood Count 3.93 MC/CUMM (3.8-5.5); Red Cell Distribution Width 19.6 % (9.3-17.3); White Blood Count 34.2 T/CUMM (4-12)
[2018-08-28 03:36] LABS: Calcium 8.7 MG/DL (8.5-10.1); Osmolality,Calculated 286.1 MOS/KG (273-304); Potassium 4.9 MMOL/L (3.5-5.1)
[2018-08-28 03:59] LABS: Lymphocytes 9 % (20-55); Platelet Estimate Adequate; Polychromasia Few; Segmented Neutrophils 89 % (50-85); Total Cells Counted 100
[2018-08-28] MEDS: cefTAZidime 1,000 MG in SYRINGE 1 EACH IV SCH ×2 (05:16→11:44)
[2018-08-28] MEDS: MEROPENEM 500 MG in SODIUM CHLORIDE 0.9% 100 ML IV SCH ×2 (05:16→16:32)
[2018-08-28] MEDS: LEVOTHYROXINE 112 MCG TABLET PO SCH (06:26)
[2018-08-28] MEDS: DORNASE ALFA 2.5 MG/2.5 ML VIAL RESP TX SCH ×2 (07:29→18:59)
[2018-08-28] MEDS: ALBUTEROL/IPRATROPIUM 3 ML NEB RESP TX SCH ×4 (07:29→18:58)
[2018-08-28] MEDS: ASPIRIN CHEW 81 MG TABLET PO SCH (09:44)
[2018-08-28] MEDS: MULTIVITAMIN (CENTRUM) TABLET PO SCH (09:45)
[2018-08-28] MEDS: CALCIUM (CARBONATE) 600 MG TABLET PO SCH ×2 (09:45→21:16)
[2018-08-28] MEDS: FUROSEMIDE 20 MG TABLET PO SCH (09:45)
[2018-08-28] MEDS: FOLIC ACID 1 MG TABLET PO SCH (09:45)
[2018-08-28] MEDS: TAMSULOSIN 0.4 MG CAPSULE PO SCH ×2 (09:45→21:17)
[2018-08-28] MEDS: APIXABAN 5 MG TABLET PO SCH ×2 (09:45→21:16)
[2018-08-28] MEDS: FLUoxetine 20 MG CAPSULE PO SCH (09:46)
[2018-08-28] MEDS: GABAPENTIN 100 MG CAPSULE PO SCH (09:46)
[2018-08-28] MEDS: PANTOPRAZOLE 40 MG TABLET PO SCH ×2 (09:46→21:17)
[2018-08-28] MEDS: MONTELUKAST 10 MG TABLET PO SCH (09:46)
[2018-08-28 09:54] LABS: Albumin 2.9 G/DL (3.4-5.0); Bilirubin,Direct 0.59 MG/DL (0.0-0.20); Bilirubin,Indirect 0.5 MG/DL (0.0-1.0); Bilirubin,Total 1.1 MG/DL (0.2-1.0); Total Protein 5.9 G/DL (6.4-8.3)
[2018-08-28] MEDS: DEXTROSE 5% NACL 0.45% 1,000 ML IV SCH ×3 (10:00→23:26)
[2018-08-28] MEDS: BUDESONIDE/FORMOTEROL 160-4.5 INHALER 6 GM INH SCH ×2 (10:30→21:15)
[2018-08-28 10:49] LABS: Apearance,Urine Slightly Hazy (Clear); Bacteria,Urine Few /HPF (Few); Blood, Urine Negative (Negative); Glucose,Urine (UA) 50 mg/dL (Negative); Hyaline Casts,Urine 13 /LPF (0-3); Ketones,Urine 5 mg/dL (Negative); Mucus,Urine Few /LPF (Occasional); Nitrite,Urine Negative (Negative); Protein,Urine 100 MG/DL; RBC,Urine 2 /HPF (0-4); Urine Color Amber (Yellow); Urine Specific Gravity 1.023 (1.001-1.035); Urine Urobilinogen < 2.0 EU/DL (0.2-1.0); WBC,Urine 1 /HPF (0-6)
[2018-08-28 10:50] LABS: Bilirubin,Urine Small mg/dL (Negative)
[2018-08-28] MEDS: MAGNESIUM CHLORIDE 64 MG TABLET PO SCH (21:17)
[2018-08-28] MEDS: GABAPENTIN 300 MG CAPSULE PO SCH (21:17)
[2018-08-29] MEDS: methylPREDNISolone SOD SUC 40 MG/1 ML VIAL IV SCH ×3 (01:58→16:47)
[2018-08-29 03:35] LABS: Basophils % 0.1 % (0.0-0.8); Hematocrit 35.6 VOL% (35.7-47.0); Hemoglobin 11.1 GM/DL (12.0-16.0); Immature Granulocytes % 0.9 %; Immature Granulocytes Absolute 0.19 #; Lymphocytes # 0.3 10*3/uL (1.4-4.0); Lymphocytes % 1.3 % (21.3-54.2); Mean Corpuscular HGB Conc 31.2 GM/DL (32-36); Mean Corpuscular Hemoglobin 27 PG (27-34); Mean Corpuscular Volume 85.8 FL (87-102); Mean Platelet Volume 12.9 FL (9.6-12.0); Monocytes # 1.1 10*3/uL (0.11-0.8); Neutrophils # 20.5 10*3/uL (1.4-7.4); Neutrophils % 92.7 % (38.7-73.9); Red Blood Count 4.15 MC/CUMM (3.8-5.5); Red Cell Distribution Width 19.5 % (9.3-17.3); White Blood Count 22.1 T/CUMM (4-12)
[2018-08-29 03:38] LABS: Platelet Count 67 T/CUMM (130-400)
[2018-08-29 03:50] LABS: Calcium 8.2 MG/DL (8.5-10.1); Osmolality,Calculated 295.2 MOS/KG (273-304); Potassium 4.7 MMOL/L (3.5-5.1)
[2018-08-29 03:58] LABS: Albumin 2.9 G/DL (3.4-5.0); Bilirubin,Direct 0.51 MG/DL (0.0-0.20); Bilirubin,Indirect 0.4 MG/DL (0.0-1.0); Bilirubin,Total 0.9 MG/DL (0.2-1.0)
[2018-08-29 04:18] LABS: Band Neutrophils 2 % (0-10); Hypochromasia 2+; Lymphocytes 2 % (20-55); Ovalocytes 1+; Platelet Estimate Decreased; Segmented Neutrophils 91 % (50-85); Total Cells Counted 100
[2018-08-29] MEDS: MEROPENEM 500 MG in SODIUM CHLORIDE 0.9% 100 ML IV SCH ×2 (06:16→17:01)
[2018-08-29] MEDS: LEVOTHYROXINE 112 MCG TABLET PO SCH (06:17)
[2018-08-29] MEDS: ONDANSETRON 4 MG/2 ML VIAL IV PRN ×3 (07:26→21:20)
[2018-08-29] MEDS ORDERED: LIDOCAINE 2% VISCOUS 100 ML BOTTLE SWISH/SWAL PRN (09:21)
[2018-08-29] MEDS ORDERED: SODIUM PHOSPHATE ENEMA 133 ML BOTTLE RECTAL ONE ×2 (09:58→18:39)
[2018-08-29] MEDS: cefTAZidime 1,000 MG in SYRINGE 1 EACH IV SCH ×2 (10:29→11:53)
[2018-08-29] MEDS: cloNIDine 0.1 MG/24 HR PATCH TRANSDERM SCH (10:32)
[2018-08-29] MEDS: BUDESONIDE/FORMOTEROL 160-4.5 INHALER 6 GM INH SCH ×2 (10:35→21:20)
[2018-08-29] MEDS: PANTOPRAZOLE 40 MG VIAL IV SCH ×2 (10:36→21:25)
[2018-08-29] MEDS: PANTOPRAZOLE 40 MG TABLET PO SCH (10:36)
[2018-08-29] MEDS: CALCIUM (CARBONATE) 600 MG TABLET PO SCH ×2 (11:21→21:22)
[2018-08-29] MEDS: MULTIVITAMIN (CENTRUM) TABLET PO SCH (11:21)
[2018-08-29] MEDS: ASPIRIN CHEW 81 MG TABLET PO SCH (11:21)
[2018-08-29] MEDS: FUROSEMIDE 20 MG TABLET PO SCH (11:22)
[2018-08-29] MEDS: APIXABAN 5 MG TABLET PO SCH (11:22)
[2018-08-29] MEDS: FOLIC ACID 1 MG TABLET PO SCH (11:22)
[2018-08-29] MEDS: TAMSULOSIN 0.4 MG CAPSULE PO SCH ×2 (11:22→21:23)
[2018-08-29] MEDS: FLUoxetine 20 MG CAPSULE PO SCH ×2 (11:23→14:50)
[2018-08-29] MEDS: GABAPENTIN 100 MG CAPSULE PO SCH (11:23)
[2018-08-29] MEDS: MONTELUKAST 10 MG TABLET PO SCH (11:25)
[2018-08-29] MEDS: DEXTROSE 5% NACL 0.45% 1,000 ML IV SCH (12:31)
[2018-08-29] MEDS: LEVOTHYROXINE 100 MCG VIAL IV SCH (17:12)
[2018-08-29] MEDS: ALBUTEROL/IPRATROPIUM 3 ML NEB RESP TX SCH ×2 (19:20→19:24)
[2018-08-29] MEDS: DORNASE ALFA 2.5 MG/2.5 ML VIAL RESP TX SCH ×2 (19:20→19:25)
[2018-08-29] MEDS: GABAPENTIN 300 MG CAPSULE PO SCH (21:23)
[2018-08-29] MEDS: MAGNESIUM CHLORIDE 64 MG TABLET PO SCH (21:24)
[2018-08-30] MEDS: methylPREDNISolone SOD SUC 40 MG/1 ML VIAL IV SCH ×3 (00:58→17:33)
[2018-08-30 05:02] LABS: Basophils % 0.1 % (0.0-0.8); Hematocrit 33.6 VOL% (35.7-47.0); Hemoglobin 11.1 GM/DL (12.0-16.0); Immature Granulocytes % 1.4 %; Immature Granulocytes Absolute 0.26 #; Lymphocytes # 0.3 10*3/uL (1.4-4.0); Lymphocytes % 1.4 % (21.3-54.2); Mean Corpuscular Hemoglobin 28 PG (27-34); Mean Corpuscular Volume 84.4 FL (87-102); Mean Platelet Volume 12.3 FL (9.6-12.0); Monocytes # 0.9 10*3/uL (0.11-0.8); Monocytes % 4.9 % (1.7-12.7); NRBC # 0.02 10*3/uL; Neutrophils # 17.2 10*3/uL (1.4-7.4); Neutrophils % 92.2 % (38.7-73.9); Platelet Count 94 T/CUMM (130-400); Red Blood Count 3.98 MC/CUMM (3.8-5.5); Red Cell Distribution Width 19.1 % (9.3-17.3); White Blood Count 18.6 T/CUMM (4-12)
[2018-08-30 05:31] LABS: Calcium 8.5 MG/DL (8.5-10.1); Osmolality,Calculated 294.5 MOS/KG (273-304); Potassium 4.4 MMOL/L (3.5-5.1)
[2018-08-30 06:15] LABS: Band Neutrophils 2 % (0-10); Hypochromasia 2+; Lymphocytes 2 % (20-55); Platelet Estimate Decreased; Segmented Neutrophils 92 % (50-85); Total Cells Counted 100
[2018-08-30 06:16] LABS: Polychromasia Few
[2018-08-30] MEDS: MEROPENEM 500 MG in SODIUM CHLORIDE 0.9% 100 ML IV SCH ×2 (06:20→17:33)
[2018-08-30] MEDS ORDERED: LEVOTHYROXINE 100 MCG VIAL IV SCH ×2 (07:00→14:33)
[2018-08-30] MEDS: ALBUTEROL/IPRATROPIUM 3 ML NEB RESP TX SCH ×4 (07:09→19:03)
[2018-08-30] MEDS: DORNASE ALFA 2.5 MG/2.5 ML VIAL RESP TX SCH ×2 (07:09→19:03)
[2018-08-30] MEDS ORDERED: METHOTREXATE 2.5 MG TABLET PO SCH (09:00)
[2018-08-30 09:09] LABS: Albumin 2.7 G/DL (3.4-5.0); Bilirubin,Direct 0.53 MG/DL (0.0-0.20); Bilirubin,Indirect 0.6 MG/DL (0.0-1.0); Bilirubin,Total 1.1 MG/DL (0.2-1.0); Total Protein 5.7 G/DL (6.4-8.3)
[2018-08-30] MEDS: MULTIVITAMIN (CENTRUM) TABLET PO SCH (10:18)
[2018-08-30] MEDS: CALCIUM (CARBONATE) 600 MG TABLET PO SCH ×2 (10:19→21:25)
[2018-08-30] MEDS: FLUoxetine 20 MG CAPSULE PO SCH (10:19)
[2018-08-30] MEDS: FUROSEMIDE 20 MG TABLET PO SCH (10:19)
[2018-08-30] MEDS: TAMSULOSIN 0.4 MG CAPSULE PO SCH ×2 (10:19→21:25)
[2018-08-30] MEDS: MONTELUKAST 10 MG TABLET PO SCH (10:19)
[2018-08-30] MEDS: GABAPENTIN 100 MG CAPSULE PO SCH ×4 (10:20→21:25)
[2018-08-30] MEDS: FOLIC ACID 1 MG TABLET PO SCH (10:20)
[2018-08-30] MEDS: BUDESONIDE/FORMOTEROL 160-4.5 INHALER 6 GM INH SCH ×2 (10:21→21:47)
[2018-08-30] MEDS: ASPIRIN CHEW 81 MG TABLET PO SCH (10:21)
[2018-08-30] MEDS: PANTOPRAZOLE 40 MG VIAL IV SCH ×2 (10:22→21:41)
[2018-08-30] MEDS: METOPROLOL TARTRATE 25 MG TABLET PO SCH ×2 (10:25→21:25)
[2018-08-30] MEDS: ONDANSETRON 4 MG/2 ML VIAL IV PRN (10:33)
[2018-08-30] MEDS ORDERED: DEXTROSE 50% 25 GM/50 ML VIAL IV PRN (11:56)
[2018-08-30] MEDS ORDERED: GLUCAGON 1 MG VIAL IM PRN (11:56)
[2018-08-30] MEDS: LEVOTHYROXINE 112 MCG TABLET PO SCH (14:19)
[2018-08-30] MEDS: cefTAZidime 1,000 MG in SYRINGE 1 EACH IV SCH (14:40)
[2018-08-30] MEDS: FAT EMULSION 20% 250 ML IV SCH (14:40)
[2018-08-30] MEDS: DEXTROSE 5% NACL 0.45% 1,000 ML IV SCH ×2 (15:42→23:36)
[2018-08-30] MEDS: LEVOTHYROXINE 100 MCG VIAL IV SCH (15:51)
[2018-08-30] MEDS: INSULIN REGULAR 100 UNIT/ML SUBCUT SCH ×3 (17:32→23:44)
[2018-08-30] MEDS: TRACE ELEMENTS (5) 1 ML, MULTIVITAMIN INJ 10 ML in AMINO ACIDS/DEXT/LYTES 4.25-5% 2,000 ML IV SCH (17:33)
[2018-08-30] MEDS ORDERED: ENOXAPARIN 40 MG/0.4 ML SYRINGE SUBCUT SCH (21:00)
[2018-08-30] MEDS: APIXABAN 5 MG TABLET PO SCH (21:25)
[2018-08-30] MEDS: MAGNESIUM CHLORIDE 64 MG TABLET PO SCH (21:25)
[2018-08-31] MEDS: methylPREDNISolone SOD SUC 40 MG/1 ML VIAL IV SCH ×3 (00:18→16:39)
[2018-08-31] MEDS: ONDANSETRON 4 MG/2 ML VIAL IV PRN ×2 (04:30→16:56)
[2018-08-31] MEDS: MEROPENEM 500 MG in SODIUM CHLORIDE 0.9% 100 ML IV SCH ×2 (05:00→16:49)
[2018-08-31 05:23] LABS: Basophils % 0.1 % (0.0-0.8); Hemoglobin 10.9 GM/DL (12.0-16.0); Immature Granulocytes % 1.3 %; Immature Granulocytes Absolute 0.25 #; Lymphocytes # 0.2 10*3/uL (1.4-4.0); Mean Corpuscular HGB Conc 31.1 GM/DL (32-36); Mean Corpuscular Hemoglobin 27 PG (27-34); Mean Corpuscular Volume 85.8 FL (87-102); Mean Platelet Volume 11.5 FL (9.6-12.0); Monocytes # 1.1 10*3/uL (0.11-0.8); Monocytes % 5.6 % (1.7-12.7); NRBC # 0.04 10*3/uL; Neutrophils # 17.8 10*3/uL (1.4-7.4); Platelet Count 97 T/CUMM (130-400); Red Blood Count 4.08 MC/CUMM (3.8-5.5); Red Cell Distribution Width 19.5 % (9.3-17.3); White Blood Count 19.3 T/CUMM (4-12)
[2018-08-31 05:41] LABS: Bilirubin,Total 1.3 MG/DL (0.2-1.0); Calcium 8.6 MG/DL (8.5-10.1); Osmolality,Calculated 295.4 MOS/KG (273-304); Osmolality,Calculated 297.3 MOS/KG (273-304); Potassium 4.2 MMOL/L (3.5-5.1); Prealbumin 14.8 MG/DL (20-40); Total Protein 5.9 G/DL (6.4-8.3)
[2018-08-31] MEDS: INSULIN REGULAR 100 UNIT/ML SUBCUT SCH ×4 (06:34→17:35)
[2018-08-31 06:38] LABS: Band Neutrophils 2 % (0-10); Lymphocytes 2 % (20-55); Segmented Neutrophils 95 % (50-85); Total Cells Counted 100
[2018-08-31 06:39] LABS: Anisocytosis 1+; Ovalocytes 1+; Platelet Estimate Adequate
[2018-08-31] MEDS: ALBUTEROL/IPRATROPIUM 3 ML NEB RESP TX SCH ×4 (06:52→20:07)
[2018-08-31] MEDS: DORNASE ALFA 2.5 MG/2.5 ML VIAL RESP TX SCH ×2 (07:05→20:07)
[2018-08-31] MEDS: PANTOPRAZOLE 40 MG VIAL IV SCH ×2 (08:36→21:38)
[2018-08-31] MEDS: METOPROLOL TARTRATE 25 MG TABLET PO SCH ×2 (08:37→21:29)
[2018-08-31] MEDS: MONTELUKAST 10 MG TABLET PO SCH (08:37)
[2018-08-31] MEDS: FLUoxetine 20 MG CAPSULE PO SCH (08:37)
[2018-08-31] MEDS: MULTIVITAMIN (CENTRUM) TABLET PO SCH (08:37)
[2018-08-31] MEDS: TAMSULOSIN 0.4 MG CAPSULE PO SCH ×2 (08:37→21:29)
[2018-08-31] MEDS: APIXABAN 5 MG TABLET PO SCH ×2 (08:38→21:29)
[2018-08-31] MEDS: GABAPENTIN 100 MG CAPSULE PO SCH ×3 (08:38→21:28)
[2018-08-31] MEDS: FOLIC ACID 1 MG TABLET PO SCH (08:38)
[2018-08-31] MEDS: FUROSEMIDE 20 MG TABLET PO SCH (08:38)
[2018-08-31] MEDS: CALCIUM (CARBONATE) 600 MG TABLET PO SCH ×2 (08:39→21:28)
[2018-08-31] MEDS: ASPIRIN CHEW 81 MG TABLET PO SCH (08:39)
[2018-08-31] MEDS: BUDESONIDE/FORMOTEROL 160-4.5 INHALER 6 GM INH SCH ×2 (11:52→21:47)
[2018-08-31] MEDS: cefTAZidime 1,000 MG in SYRINGE 1 EACH IV SCH (11:53)
[2018-08-31] MEDS: LEVOTHYROXINE 112 MCG TABLET PO SCH (14:30)
[2018-08-31] MEDS: LEVOTHYROXINE 100 MCG VIAL IV SCH (14:30)
[2018-08-31] MEDS: FAT EMULSION 20% 250 ML IV SCH (14:35)
[2018-08-31] MEDS: DEXTROSE 5% NACL 0.45% 1,000 ML IV SCH (14:44)
[2018-08-31] MEDS: MAGNESIUM CHLORIDE 64 MG TABLET PO SCH (21:29)
[2018-09-01] MEDS: INSULIN REGULAR 100 UNIT/ML SUBCUT SCH ×5 (00:29→18:03)
[2018-09-01] MEDS: TRACE ELEMENTS (5) 1 ML, MULTIVITAMIN INJ 10 ML in AMINO ACIDS/DEXT/LYTES 4.25-5% 2,000 ML IV SCH ×2 (00:31→21:14)
[2018-09-01] MEDS: methylPREDNISolone SOD SUC 40 MG/1 ML VIAL IV SCH ×3 (01:34→16:14)
[2018-09-01] MEDS: DEXTROSE 5% NACL 0.45% 1,000 ML IV SCH ×2 (01:37→14:34)
[2018-09-01] MEDS: ONDANSETRON 4 MG/2 ML VIAL IV PRN ×2 (02:59→09:13)
[2018-09-01] MEDS: MEROPENEM 500 MG in SODIUM CHLORIDE 0.9% 100 ML IV SCH ×2 (04:51→16:16)
[2018-09-01 06:00] LABS: Basophils % 0.1 % (0.0-0.8); Hematocrit 36.1 VOL% (35.7-47.0); Immature Granulocytes % 1.4 %; Lymphocytes # 0.3 10*3/uL (1.4-4.0); Lymphocytes % 1.4 % (21.3-54.2); Mean Corpuscular HGB Conc 30.5 GM/DL (32-36); Mean Corpuscular Hemoglobin 26 PG (27-34); Mean Corpuscular Volume 86.8 FL (87-102); Mean Platelet Volume 13.7 FL (9.6-12.0); Monocytes # 1.6 10*3/uL (0.11-0.8); Monocytes % 7.3 % (1.7-12.7); NRBC # 0.04 10*3/uL; Neutrophils # 19.3 10*3/uL (1.4-7.4); Neutrophils % 89.8 % (38.7-73.9); Red Blood Count 4.16 MC/CUMM (3.8-5.5); Red Cell Distribution Width 19.6 % (9.3-17.3); White Blood Count 21.5 T/CUMM (4-12)
[2018-09-01 06:04] LABS: Platelet Count 84 T/CUMM (130-400)
[2018-09-01] MEDS: LEVOTHYROXINE 112 MCG TABLET PO SCH (06:15)
[2018-09-01 06:21] LABS: Band Neutrophils 3 % (0-10); Lymphocytes 4 % (20-55); Metamyelocytes 3 %; Nucleated Red Blood Cells 2 (0-5); Segmented Neutrophils 83 % (50-85); Total Cells Counted 100
[2018-09-01 06:22] LABS: Anisocytosis 1+; Platelet Estimate Decreased; Smudge Cells Few
[2018-09-01 06:26] LABS: Bilirubin,Total 1.8 MG/DL (0.2-1.0); Calcium 8.5 MG/DL (8.5-10.1); Osmolality,Calculated 287.5 MOS/KG (273-304); Potassium 4.6 MMOL/L (3.5-5.1); Total Protein 5.9 G/DL (6.4-8.3)
[2018-09-01] MEDS: ALBUTEROL/IPRATROPIUM 3 ML NEB RESP TX SCH ×4 (07:00→19:30)
[2018-09-01] MEDS: DORNASE ALFA 2.5 MG/2.5 ML VIAL RESP TX SCH ×2 (07:10→19:30)
[2018-09-01] MEDS: PANTOPRAZOLE 40 MG VIAL IV SCH ×2 (09:15→21:12)
[2018-09-01] MEDS: APIXABAN 5 MG TABLET PO SCH ×2 (09:16→21:12)
[2018-09-01] MEDS: MULTIVITAMIN (CENTRUM) TABLET PO SCH (09:16)
[2018-09-01] MEDS: MONTELUKAST 10 MG TABLET PO SCH (09:17)
[2018-09-01] MEDS: ASPIRIN CHEW 81 MG TABLET PO SCH (09:17)
[2018-09-01] MEDS: METOPROLOL TARTRATE 25 MG TABLET PO SCH ×2 (09:17→21:12)
[2018-09-01] MEDS: TAMSULOSIN 0.4 MG CAPSULE PO SCH ×2 (09:17→21:12)
[2018-09-01] MEDS: FUROSEMIDE 20 MG TABLET PO SCH (09:17)
[2018-09-01] MEDS: CALCIUM (CARBONATE) 600 MG TABLET PO SCH ×2 (09:17→21:13)
[2018-09-01] MEDS: FOLIC ACID 1 MG TABLET PO SCH (09:17)
[2018-09-01] MEDS: FLUoxetine 20 MG CAPSULE PO SCH (09:17)
[2018-09-01] MEDS: GABAPENTIN 100 MG CAPSULE PO SCH ×3 (09:17→21:13)
[2018-09-01] MEDS: BUDESONIDE/FORMOTEROL 160-4.5 INHALER 6 GM INH SCH ×2 (09:18→21:15)
[2018-09-01] MEDS: cefTAZidime 1,000 MG in SYRINGE 1 EACH IV SCH (12:57)
[2018-09-01] MEDS: FAT EMULSION 20% 250 ML IV SCH (14:16)
[2018-09-01] MEDS: MAGNESIUM CHLORIDE 64 MG TABLET PO SCH (21:12)
[2018-09-02] MEDS: INSULIN REGULAR 100 UNIT/ML SUBCUT SCH ×4 (00:56→17:40)
[2018-09-02] MEDS: methylPREDNISolone SOD SUC 40 MG/1 ML VIAL IV SCH ×3 (00:57→17:40)
[2018-09-02] MEDS: DEXTROSE 5% NACL 0.45% 1,000 ML IV SCH ×2 (02:48→15:18)
[2018-09-02] MEDS: TRACE ELEMENTS (5) 1 ML, MULTIVITAMIN INJ 10 ML in AMINO ACIDS/DEXT/LYTES 4.25-5% 2,000 ML IV SCH ×2 (02:49→17:41)
[2018-09-02 04:44] LABS: Basophils % 0.1 % (0.0-0.8); Hematocrit 34.9 VOL% (35.7-47.0); Hemoglobin 10.9 GM/DL (12.0-16.0); Immature Granulocytes % 2.3 %; Immature Granulocytes Absolute 0.36 #; Lymphocytes # 0.3 10*3/uL (1.4-4.0); Lymphocytes % 1.7 % (21.3-54.2); Mean Corpuscular HGB Conc 31.2 GM/DL (32-36); Mean Corpuscular Hemoglobin 27 PG (27-34); Monocytes % 6.3 % (1.7-12.7); NRBC # 0.04 10*3/uL; Neutrophils # 14.2 10*3/uL (1.4-7.4); Neutrophils % 89.6 % (38.7-73.9); Platelet Count 72 T/CUMM (130-400); Red Blood Count 4.06 MC/CUMM (3.8-5.5); Red Cell Distribution Width 19.6 % (9.3-17.3); White Blood Count 15.9 T/CUMM (4-12)
[2018-09-02 05:15] LABS: Albumin 2.9 G/DL (3.4-5.0); Bilirubin,Total 1.8 MG/DL (0.2-1.0); Calcium 8.6 MG/DL (8.5-10.1); Potassium 4.5 MMOL/L (3.5-5.1); Total Protein 5.7 G/DL (6.4-8.3)
[2018-09-02 05:32] LABS: Band Neutrophils 2 % (0-10); Platelet Estimate Decreased; Segmented Neutrophils 92 % (50-85); Total Cells Counted 100
[2018-09-02 05:33] LABS: Hypochromasia 1+; Ovalocytes Slight
[2018-09-02] MEDS: MEROPENEM 500 MG in SODIUM CHLORIDE 0.9% 100 ML IV SCH (06:12)
[2018-09-02] MEDS: LEVOTHYROXINE 100 MCG TABLET PO SCH (06:12)
[2018-09-02] MEDS: DORNASE ALFA 2.5 MG/2.5 ML VIAL RESP TX SCH ×2 (06:41→19:20)
[2018-09-02] MEDS: ALBUTEROL/IPRATROPIUM 3 ML NEB RESP TX SCH ×4 (06:41→19:20)
[2018-09-02] MEDS: TAMSULOSIN 0.4 MG CAPSULE PO SCH ×2 (08:50→22:21)
[2018-09-02] MEDS: FUROSEMIDE 20 MG TABLET PO SCH (08:50)
[2018-09-02] MEDS: FOLIC ACID 1 MG TABLET PO SCH (08:50)
[2018-09-02] MEDS: MULTIVITAMIN (CENTRUM) TABLET PO SCH (08:51)
[2018-09-02] MEDS: GABAPENTIN 100 MG CAPSULE PO SCH ×3 (08:51→22:21)
[2018-09-02] MEDS: FLUoxetine 20 MG CAPSULE PO SCH (08:51)
[2018-09-02] MEDS: CALCIUM (CARBONATE) 600 MG TABLET PO SCH ×2 (08:51→22:20)
[2018-09-02] MEDS: MONTELUKAST 10 MG TABLET PO SCH (08:51)
[2018-09-02] MEDS: METOPROLOL TARTRATE 25 MG TABLET PO SCH ×2 (08:52→22:20)
[2018-09-02] MEDS: PANTOPRAZOLE 40 MG VIAL IV SCH ×2 (08:54→22:20)
[2018-09-02] MEDS: BUDESONIDE/FORMOTEROL 160-4.5 INHALER 6 GM INH SCH ×2 (09:02→22:20)
[2018-09-02] MEDS ORDERED: SODIUM PHOSPHATE ENEMA 133 ML BOTTLE RECTAL PRN (10:49)
[2018-09-02] MEDS ORDERED: ACETAMINOPHEN 325 MG TABLET PO PRN (10:59)
[2018-09-02] MEDS: ASPIRIN CHEW 81 MG TABLET PO SCH (11:30)
[2018-09-02] MEDS: APIXABAN 5 MG TABLET PO SCH (11:31)
[2018-09-02] MEDS: APIXABAN 2.5 MG TABLET PO SCH (11:58)
[2018-09-02] MEDS: POLYETHYLENE GLYCOL POWDER 17 GM PACK PO SCH (12:01)
[2018-09-02] MEDS ORDERED: ACETAMINOPHEN 325 MG TABLET PO SCH (15:00)
[2018-09-02] MEDS: FAT EMULSION 20% 250 ML IV SCH (15:37)
[2018-09-02] MEDS: LOSARTAN 25 MG TABLET PO SCH (17:40)
[2018-09-02] MEDS: ONDANSETRON 4 MG/2 ML VIAL IV PRN (19:07)
[2018-09-02] MEDS: MAGNESIUM CHLORIDE 64 MG TABLET PO SCH (22:20)
[2018-09-03] MEDS: INSULIN REGULAR 100 UNIT/ML SUBCUT SCH ×4 (00:25→18:25)
[2018-09-03] MEDS: methylPREDNISolone SOD SUC 40 MG/1 ML VIAL IV SCH ×2 (00:25→09:07)
[2018-09-03] MEDS: ONDANSETRON 4 MG/2 ML VIAL IV PRN ×2 (00:25→04:24)
[2018-09-03] MEDS: DEXTROSE 5% NACL 0.45% 1,000 ML IV SCH ×2 (04:14→16:40)
[2018-09-03 04:58] LABS: Basophils % 0.2 % (0.0-0.8); Hematocrit 34.9 VOL% (35.7-47.0); Hemoglobin 11.2 GM/DL (12.0-16.0); Immature Granulocytes Absolute 0.71 #; Lymphocytes # 0.4 10*3/uL (1.4-4.0); Mean Corpuscular HGB Conc 32.1 GM/DL (32-36); Mean Corpuscular Hemoglobin 28 PG (27-34); Mean Platelet Volume 13.6 FL (9.6-12.0); Monocytes # 1.2 10*3/uL (0.11-0.8); Monocytes % 6.7 % (1.7-12.7); Neutrophils # 15.3 10*3/uL (1.4-7.4); Neutrophils % 87.1 % (38.7-73.9); Platelet Count 103 T/CUMM (130-400); Red Blood Count 4.06 MC/CUMM (3.8-5.5); Red Cell Distribution Width 19.9 % (9.3-17.3); White Blood Count 17.6 T/CUMM (4-12)
[2018-09-03 05:21] LABS: Band Neutrophils 2 % (0-10); Hypochromasia 1+; Lymphocytes 1 % (20-55); Ovalocytes Slight; Platelet Estimate Decreased; Segmented Neutrophils 93 % (50-85); Total Cells Counted 100
[2018-09-03 05:32] LABS: Bilirubin,Total 2.4 MG/DL (0.2-1.0); Calcium 8.4 MG/DL (8.5-10.1); Osmolality,Calculated 287.1 MOS/KG (273-304); Potassium 4.7 MMOL/L (3.5-5.1); Total Protein 5.9 G/DL (6.4-8.3)
[2018-09-03] MEDS: LEVOTHYROXINE 100 MCG TABLET PO SCH (07:04)
[2018-09-03] MEDS: ALBUTEROL/IPRATROPIUM 3 ML NEB RESP TX SCH ×4 (07:21→18:55)
[2018-09-03] MEDS: DORNASE ALFA 2.5 MG/2.5 ML VIAL RESP TX SCH ×2 (07:21→19:12)
[2018-09-03] MEDS: LINACLOTIDE 145 MCG CAPSULE PO SCH (09:05)
[2018-09-03] MEDS: POLYETHYLENE GLYCOL POWDER 17 GM PACK PO SCH (09:05)
[2018-09-03] MEDS: FLUoxetine 20 MG CAPSULE PO SCH (09:05)
[2018-09-03] MEDS: APIXABAN 2.5 MG TABLET PO SCH ×2 (09:06→21:23)
[2018-09-03] MEDS: FOLIC ACID 1 MG TABLET PO SCH (09:06)
[2018-09-03] MEDS: MULTIVITAMIN (CENTRUM) TABLET PO SCH (09:06)
[2018-09-03] MEDS: CALCIUM (CARBONATE) 600 MG TABLET PO SCH ×2 (09:06→21:21)
[2018-09-03] MEDS: MONTELUKAST 10 MG TABLET PO SCH (09:06)
[2018-09-03] MEDS: FUROSEMIDE 20 MG TABLET PO SCH (09:06)
[2018-09-03] MEDS: METOPROLOL TARTRATE 25 MG TABLET PO SCH ×2 (09:07→21:21)
[2018-09-03] MEDS: LOSARTAN 25 MG TABLET PO SCH (09:07)
[2018-09-03] MEDS: GABAPENTIN 100 MG CAPSULE PO SCH ×3 (09:07→21:21)
[2018-09-03] MEDS: TAMSULOSIN 0.4 MG CAPSULE PO SCH ×2 (09:07→21:20)
[2018-09-03] MEDS: PANTOPRAZOLE 40 MG VIAL IV SCH ×2 (09:08→21:20)
[2018-09-03] MEDS: BUDESONIDE/FORMOTEROL 160-4.5 INHALER 6 GM INH SCH ×2 (09:27→21:22)
[2018-09-03] MEDS: ASPIRIN CHEW 81 MG TABLET PO SCH (10:38)
[2018-09-03] MEDS: LACTULOSE 20 GM/30 ML UDCUP PO SCH ×2 (13:33→18:25)
[2018-09-03] MEDS ORDERED: LINACLOTIDE 145 MCG CAPSULE PO ONE (15:14)
[2018-09-03] MEDS: FAT EMULSION 20% 250 ML IV SCH (16:10)
[2018-09-03] MEDS: TRACE ELEMENTS (5) 1 ML, MULTIVITAMIN INJ 10 ML in AMINO ACIDS/DEXT/LYTES 4.25-5% 2,000 ML IV SCH (18:25)
[2018-09-03] MEDS: MAGNESIUM CHLORIDE 64 MG TABLET PO SCH (21:20)
[2018-09-04] MEDS: INSULIN REGULAR 100 UNIT/ML SUBCUT SCH ×4 (01:51→17:43)
[2018-09-04] MEDS: LACTULOSE 20 GM/30 ML UDCUP PO SCH ×4 (03:30→21:38)
[2018-09-04] MEDS: DEXTROSE 5% NACL 0.45% 1,000 ML IV SCH (04:08)
[2018-09-04 05:01] LABS: Basophils % 0.1 % (0.0-0.8); Hematocrit 33.8 VOL% (35.7-47.0); Hemoglobin 10.7 GM/DL (12.0-16.0); Immature Granulocytes % 2.5 %; Immature Granulocytes Absolute 0.46 #; Lymphocytes # 0.4 10*3/uL (1.4-4.0); Lymphocytes % 2.2 % (21.3-54.2); Mean Corpuscular HGB Conc 31.7 GM/DL (32-36); Mean Corpuscular Hemoglobin 27 PG (27-34); Mean Corpuscular Volume 86.7 FL (87-102); Monocytes # 1.6 10*3/uL (0.11-0.8); Monocytes % 8.5 % (1.7-12.7); NRBC # 0.08 10*3/uL; Neutrophils % 86.7 % (38.7-73.9); Red Cell Distribution Width 20.5 % (9.3-17.3); White Blood Count 18.5 T/CUMM (4-12)
[2018-09-04 05:05] LABS: Platelet Count 86 T/CUMM (130-400)
[2018-09-04 05:23] LABS: Band Neutrophils 1 % (0-10); Hypochromasia 1+; Lymphocytes 1 % (20-55); Ovalocytes Slight; Platelet Estimate Decreased; Segmented Neutrophils 90 % (50-85); Total Cells Counted 100
[2018-09-04] MEDS: LEVOTHYROXINE 100 MCG TABLET PO SCH (06:30)
[2018-09-04] MEDS: ALBUTEROL/IPRATROPIUM 3 ML NEB RESP TX SCH ×4 (07:26→19:04)
[2018-09-04] MEDS: DORNASE ALFA 2.5 MG/2.5 ML VIAL RESP TX SCH ×2 (07:27→19:04)
[2018-09-04 08:25] LABS: Albumin 2.9 G/DL (3.4-5.0); Bilirubin,Total 1.9 MG/DL (0.2-1.0); Calcium 8.6 MG/DL (8.5-10.1); Potassium 4.4 MMOL/L (3.5-5.1); Total Protein 5.5 G/DL (6.4-8.3)
[2018-09-04] MEDS: APIXABAN 2.5 MG TABLET PO SCH (09:43)
[2018-09-04] MEDS: LOSARTAN 25 MG TABLET PO SCH (09:43)
[2018-09-04] MEDS: METOPROLOL TARTRATE 25 MG TABLET PO SCH ×2 (09:43→21:37)
[2018-09-04] MEDS: CALCIUM (CARBONATE) 600 MG TABLET PO SCH ×2 (09:43→21:37)
[2018-09-04] MEDS: GABAPENTIN 100 MG CAPSULE PO SCH ×3 (09:43→21:37)
[2018-09-04] MEDS: TAMSULOSIN 0.4 MG CAPSULE PO SCH ×2 (09:43→21:37)
[2018-09-04] MEDS: PANTOPRAZOLE 40 MG VIAL IV SCH ×2 (09:44→21:38)
[2018-09-04] MEDS: methylPREDNISolone SOD SUC 40 MG/1 ML VIAL IV SCH (09:44)
[2018-09-04] MEDS: MULTIVITAMIN (CENTRUM) TABLET PO SCH (09:44)
[2018-09-04] MEDS: FOLIC ACID 1 MG TABLET PO SCH (09:44)
[2018-09-04] MEDS: MONTELUKAST 10 MG TABLET PO SCH (09:44)
[2018-09-04] MEDS: ASPIRIN CHEW 81 MG TABLET PO SCH (09:44)
[2018-09-04] MEDS: FUROSEMIDE 20 MG TABLET PO SCH (09:44)
[2018-09-04] MEDS: FLUoxetine 20 MG CAPSULE PO SCH (09:45)
[2018-09-04] MEDS: POLYETHYLENE GLYCOL POWDER 17 GM PACK PO SCH (09:45)
[2018-09-04] MEDS: BUDESONIDE/FORMOTEROL 160-4.5 INHALER 6 GM INH SCH ×2 (09:45→21:38)
[2018-09-04] MEDS: LINACLOTIDE 145 MCG CAPSULE PO SCH (09:46)
[2018-09-04] MEDS: FAT EMULSION 20% 250 ML IV SCH (14:30)
[2018-09-04] MEDS: MAGNESIUM CHLORIDE 64 MG TABLET PO SCH (21:38)
[2018-09-05] MEDS: TRACE ELEMENTS (5) 1 ML, MULTIVITAMIN INJ 10 ML in AMINO ACIDS/DEXT/LYTES 4.25-5% 2,000 ML IV SCH (01:02)
[2018-09-05] MEDS: INSULIN REGULAR 100 UNIT/ML SUBCUT SCH ×5 (02:18→18:38)
[2018-09-05 04:57] LABS: Basophils # 0.1 10*3/uL (0.0-0.2); Basophils % 0.2 % (0.0-0.8); Hematocrit 35.5 VOL% (35.7-47.0); Hemoglobin 10.8 GM/DL (12.0-16.0); Immature Granulocytes % 4.3 %; Immature Granulocytes Absolute 0.91 #; Lymphocytes # 0.5 10*3/uL (1.4-4.0); Lymphocytes % 2.2 % (21.3-54.2); Mean Corpuscular HGB Conc 30.4 GM/DL (32-36); Mean Corpuscular Hemoglobin 27 PG (27-34); Mean Corpuscular Volume 87.2 FL (87-102); Monocytes # 1.4 10*3/uL (0.11-0.8); Monocytes % 6.5 % (1.7-12.7); NRBC # 0.06 10*3/uL; Neutrophils # 18.5 10*3/uL (1.4-7.4); Neutrophils % 86.8 % (38.7-73.9); Platelet Count 108 T/CUMM (130-400); Red Blood Count 4.07 MC/CUMM (3.8-5.5); Red Cell Distribution Width 21.1 % (9.3-17.3); White Blood Count 21.3 T/CUMM (4-12)
[2018-09-05 05:08] LABS: INR 1.3; Partial Thromboplastin Time 27.7 SECS (0-40)
[2018-09-05 05:24] LABS: Anisocytosis 1+; Hypochromasia 1+; Lymphocytes 5 % (20-55); Microcytosis 1+; Ovalocytes Few; Polychromasia Slight; Segmented Neutrophils 94 % (50-85); Total Cells Counted 100
[2018-09-05 05:25] LABS: Platelet Estimate Decreased
[2018-09-05 05:42] LABS: Albumin 2.8 G/DL (3.4-5.0); Calcium 8.6 MG/DL (8.5-10.1); Potassium 4.7 MMOL/L (3.5-5.1); Total Protein 5.5 G/DL (6.4-8.3)
[2018-09-05] MEDS: LEVOTHYROXINE 100 MCG TABLET PO SCH (06:33)
[2018-09-05] MEDS ORDERED: BENZONATATE 100 MG CAPSULE PO ONE (07:00)
[2018-09-05] MEDS ORDERED: diphenhydrAMINE CAP 50 MG CAPSULE PO ONE (07:00)
[2018-09-05] MEDS: ALBUTEROL/IPRATROPIUM 3 ML NEB RESP TX SCH ×4 (07:28→19:59)
[2018-09-05] MEDS: DORNASE ALFA 2.5 MG/2.5 ML VIAL RESP TX SCH ×2 (07:28→19:59)
[2018-09-05] MEDS ORDERED: LIDOCAINE 1% 20 ML VIAL MISC INJ ONE (08:30)
[2018-09-05] MEDS ORDERED: LIDOCAINE 2% VISCOUS 100 ML BOTTLE SWISH/SPIT ONE (08:30)
[2018-09-05] MEDS ORDERED: LIDOCAINE 2% 20 ML VIAL RESP TX ONE (08:30)
[2018-09-05] MEDS ORDERED: MIDAZOLAM 2 MG/2 ML VIAL IV ONE (09:20)
[2018-09-05] MEDS ORDERED: MIDAZOLAM 2 MG/2 ML VIAL ONE (10:01)
[2018-09-05] MEDS: LACTULOSE 20 GM/30 ML UDCUP PO SCH ×2 (13:15→21:54)
[2018-09-05] MEDS: PANTOPRAZOLE 40 MG VIAL IV SCH ×2 (13:16→21:54)
[2018-09-05] MEDS: POLYETHYLENE GLYCOL POWDER 17 GM PACK PO SCH (13:16)
[2018-09-05] MEDS: methylPREDNISolone SOD SUC 40 MG/1 ML VIAL IV SCH (13:16)
[2018-09-05] MEDS: LOSARTAN 25 MG TABLET PO SCH (13:17)
[2018-09-05] MEDS: MONTELUKAST 10 MG TABLET PO SCH (13:17)
[2018-09-05] MEDS: MULTIVITAMIN (CENTRUM) TABLET PO SCH (13:17)
[2018-09-05] MEDS: FUROSEMIDE 20 MG TABLET PO SCH (13:17)
[2018-09-05] MEDS: GABAPENTIN 100 MG CAPSULE PO SCH ×3 (13:17→21:54)
[2018-09-05] MEDS: ASPIRIN CHEW 81 MG TABLET PO SCH (13:17)
[2018-09-05] MEDS: CALCIUM (CARBONATE) 600 MG TABLET PO SCH ×2 (13:18→21:53)
[2018-09-05] MEDS: TAMSULOSIN 0.4 MG CAPSULE PO SCH ×2 (13:18→21:53)
[2018-09-05] MEDS: FLUoxetine 20 MG CAPSULE PO SCH (13:18)
[2018-09-05] MEDS: METOPROLOL TARTRATE 25 MG TABLET PO SCH ×3 (13:18→21:53)
[2018-09-05] MEDS: FOLIC ACID 1 MG TABLET PO SCH (13:19)
[2018-09-05] MEDS: BUDESONIDE/FORMOTEROL 160-4.5 INHALER 6 GM INH SCH ×2 (13:27→21:54)
[2018-09-05] MEDS: LINACLOTIDE 145 MCG CAPSULE PO SCH (13:37)
[2018-09-05] MEDS: cloNIDine 0.1 MG/24 HR PATCH TRANSDERM SCH (13:37)
[2018-09-05] MEDS: FAT EMULSION 20% 250 ML IV SCH (14:51)
[2018-09-05] MEDS: DEXTROSE 5% NACL 0.45% 1,000 ML IV SCH ×2 (16:36→18:38)
[2018-09-05] MEDS: MAGNESIUM CHLORIDE 64 MG TABLET PO SCH (21:53)
[2018-09-06] MEDS: INSULIN REGULAR 100 UNIT/ML SUBCUT SCH ×4 (01:50→18:45)
[2018-09-06 01:53] LABS: Apearance,Urine Slightly Hazy (Clear); Bacteria,Urine Many /HPF (Few); Bilirubin,Urine Negative (Negative); Blood, Urine Large mg/dL (Negative); Glucose,Urine (UA) Negative (Negative); Ketones,Urine Negative (Negative); Mucus,Urine Occasional /LPF (Occasional); Nitrite,Urine Negative (Negative); Protein,Urine Negative; RBC,Urine 7 /HPF (0-4); Squamous Epithelial Cell,Urine Occasional /HPF (0-10); Urine Color Yellow (Yellow); Urine Specific Gravity 1.015 (1.001-1.035); WBC,Urine 5 /HPF (0-6)
[2018-09-06 02:41] LABS: Basophils % 0.1 % (0.0-0.8); Hematocrit 33.1 VOL% (35.7-47.0); Hemoglobin 10.2 GM/DL (12.0-16.0); Immature Granulocytes % 2.6 %; Immature Granulocytes Absolute 0.54 #; Lymphocytes # 0.3 10*3/uL (1.4-4.0); Lymphocytes % 1.6 % (21.3-54.2); Mean Corpuscular HGB Conc 30.8 GM/DL (32-36); Mean Corpuscular Hemoglobin 27 PG (27-34); Mean Corpuscular Volume 87.8 FL (87-102); Mean Platelet Volume 13.7 FL (9.6-12.0); Monocytes % 4.6 % (1.7-12.7); NRBC # 0.02 10*3/uL; Neutrophils # 19.3 10*3/uL (1.4-7.4); Neutrophils % 91.1 % (38.7-73.9); Platelet Count 96 T/CUMM (130-400); Red Blood Count 3.77 MC/CUMM (3.8-5.5); Red Cell Distribution Width 21.2 % (9.3-17.3); White Blood Count 21.2 T/CUMM (4-12)
[2018-09-06 03:19] LABS: Osmolality,Calculated 285.8 MOS/KG (273-304); Potassium 4.6 MMOL/L (3.5-5.1)
[2018-09-06 03:22] LABS: Band Neutrophils 3 % (0-10); Lymphocytes 2 % (20-55); Platelet Estimate Decreased; Segmented Neutrophils 94 % (50-85); Total Cells Counted 100
[2018-09-06] MEDS: DEXTROSE 5% NACL 0.45% 1,000 ML IV SCH (05:19)
[2018-09-06] MEDS: TRACE ELEMENTS (5) 1 ML, MULTIVITAMIN INJ 10 ML in AMINO ACIDS/DEXT/LYTES 4.25-5% 2,000 ML IV SCH ×2 (05:28→17:44)
[2018-09-06] MEDS: LEVOTHYROXINE 100 MCG TABLET PO SCH (05:55)
[2018-09-06] MEDS: ALBUTEROL/IPRATROPIUM 3 ML NEB RESP TX SCH ×4 (08:00→19:07)
[2018-09-06] MEDS: DORNASE ALFA 2.5 MG/2.5 ML VIAL RESP TX SCH ×2 (08:10→19:07)
[2018-09-06] MEDS: MONTELUKAST 10 MG TABLET PO SCH (10:31)
[2018-09-06] MEDS: ASPIRIN CHEW 81 MG TABLET PO SCH (10:31)
[2018-09-06] MEDS: FOLIC ACID 1 MG TABLET PO SCH (10:31)
[2018-09-06] MEDS: MULTIVITAMIN (CENTRUM) TABLET PO SCH (10:32)
[2018-09-06] MEDS: FLUoxetine 20 MG CAPSULE PO SCH (10:32)
[2018-09-06] MEDS: LOSARTAN 25 MG TABLET PO SCH (10:33)
[2018-09-06] MEDS: CALCIUM (CARBONATE) 600 MG TABLET PO SCH ×2 (10:33→21:43)
[2018-09-06] MEDS: GABAPENTIN 100 MG CAPSULE PO SCH ×3 (10:33→21:43)
[2018-09-06] MEDS: FUROSEMIDE 20 MG TABLET PO SCH (10:33)
[2018-09-06] MEDS: LINACLOTIDE 145 MCG CAPSULE PO SCH (10:34)
[2018-09-06] MEDS: TAMSULOSIN 0.4 MG CAPSULE PO SCH ×2 (10:34→21:43)
[2018-09-06] MEDS: LACTULOSE 20 GM/30 ML UDCUP PO SCH ×2 (10:34→18:45)
[2018-09-06] MEDS: POLYETHYLENE GLYCOL POWDER 17 GM PACK PO SCH (10:34)
[2018-09-06] MEDS: PANTOPRAZOLE 40 MG VIAL IV SCH ×2 (10:35→21:43)
[2018-09-06] MEDS: BUDESONIDE/FORMOTEROL 160-4.5 INHALER 6 GM INH SCH ×2 (10:35→21:44)
[2018-09-06] MEDS: methylPREDNISolone SOD SUC 40 MG/1 ML VIAL IV SCH (10:35)
[2018-09-06] MEDS: METOPROLOL TARTRATE 25 MG TABLET PO SCH ×2 (11:15→21:43)
[2018-09-06] MEDS: FAT EMULSION 20% 250 ML IV SCH (17:10)
[2018-09-06] MEDS: RIFAXIMIN 550 MG TABLET PO SCH (21:43)
[2018-09-06] MEDS: APIXABAN 2.5 MG TABLET PO SCH (21:43)
[2018-09-06] MEDS: MAGNESIUM CHLORIDE 64 MG TABLET PO SCH (21:43)
[2018-09-07] MEDS: INSULIN REGULAR 100 UNIT/ML SUBCUT SCH ×4 (00:15→18:17)
[2018-09-07] MEDS: ONDANSETRON 4 MG/2 ML VIAL IV PRN (01:52)
[2018-09-07] MEDS: LACTULOSE 20 GM/30 ML UDCUP PO SCH ×3 (01:52→18:27)
[2018-09-07] MEDS: LEVOTHYROXINE 100 MCG TABLET PO SCH (06:54)
[2018-09-07 07:04] LABS: Basophils % 0.1 % (0.0-0.8); Eosinophils # 0.1 10*3/uL (0.0-0.87); Eosinophils % 0.4 % (0.00-10.9); Hematocrit 33.5 VOL% (35.7-47.0); Hemoglobin 10.5 GM/DL (12.0-16.0); Immature Granulocytes % 1.6 %; Lymphocytes # 0.3 10*3/uL (1.4-4.0); Lymphocytes % 1.5 % (21.3-54.2); Mean Corpuscular HGB Conc 31.3 GM/DL (32-36); Mean Corpuscular Hemoglobin 28 PG (27-34); Mean Corpuscular Volume 89.1 FL (87-102); Monocytes % 5.1 % (1.7-12.7); Neutrophils # 16.9 10*3/uL (1.4-7.4); Neutrophils % 91.3 % (38.7-73.9); Red Blood Count 3.76 MC/CUMM (3.8-5.5); Red Cell Distribution Width 21.5 % (9.3-17.3); White Blood Count 18.6 T/CUMM (4-12)
[2018-09-07 07:12] LABS: Platelet Count 64 T/CUMM (130-400)
[2018-09-07 07:19] LABS: Albumin 2.3 G/DL (3.4-5.0); Bilirubin,Total 1.2 MG/DL (0.2-1.0); Osmolality,Calculated 280.1 MOS/KG (273-304); Potassium 4.7 MMOL/L (3.5-5.1)
[2018-09-07] MEDS: ALBUTEROL/IPRATROPIUM 3 ML NEB RESP TX SCH ×4 (07:30→20:05)
[2018-09-07] MEDS: DORNASE ALFA 2.5 MG/2.5 ML VIAL RESP TX SCH ×2 (07:38→20:05)
[2018-09-07 07:53] LABS: Band Neutrophils 2 % (0-10); Hypochromasia 1+; Lymphocytes 3 % (20-55); Segmented Neutrophils 93 % (50-85); Total Cells Counted 100
[2018-09-07 07:54] LABS: Anisocytosis 1+; Microcytosis 1+; Ovalocytes Slight; Polychromasia Slight
[2018-09-07] MEDS: POLYETHYLENE GLYCOL POWDER 17 GM PACK PO SCH (09:27)
[2018-09-07] MEDS: LINACLOTIDE 145 MCG CAPSULE PO SCH (09:30)
[2018-09-07] MEDS: FUROSEMIDE 20 MG TABLET PO SCH (09:30)
[2018-09-07] MEDS: FLUoxetine 20 MG CAPSULE PO SCH (09:31)
[2018-09-07] MEDS: APIXABAN 2.5 MG TABLET PO SCH ×2 (09:35→21:38)
[2018-09-07] MEDS: LOSARTAN 25 MG TABLET PO SCH (09:36)
[2018-09-07] MEDS: GABAPENTIN 100 MG CAPSULE PO SCH ×3 (09:36→21:38)
[2018-09-07] MEDS: FOLIC ACID 1 MG TABLET PO SCH (09:36)
[2018-09-07] MEDS: MONTELUKAST 10 MG TABLET PO SCH (09:37)
[2018-09-07] MEDS: RIFAXIMIN 550 MG TABLET PO SCH ×2 (09:38→21:38)
[2018-09-07] MEDS: CALCIUM (CARBONATE) 600 MG TABLET PO SCH ×2 (09:38→21:39)
[2018-09-07] MEDS: METOPROLOL TARTRATE 25 MG TABLET PO SCH ×2 (09:39→21:38)
[2018-09-07] MEDS: TAMSULOSIN 0.4 MG CAPSULE PO SCH ×2 (09:40→21:38)
[2018-09-07] MEDS: PANTOPRAZOLE 40 MG VIAL IV SCH ×2 (09:40→21:39)
[2018-09-07] MEDS: MULTIVITAMIN (CENTRUM) TABLET PO SCH (09:40)
[2018-09-07] MEDS: methylPREDNISolone SOD SUC 40 MG/1 ML VIAL IV SCH (09:46)
[2018-09-07] MEDS: LEVOFLOXACIN 500 MG TABLET PO SCH (09:48)
[2018-09-07] MEDS: BUDESONIDE/FORMOTEROL 160-4.5 INHALER 6 GM INH SCH ×2 (09:54→21:39)
[2018-09-07] MEDS: TRACE ELEMENTS (5) 1 ML, MULTIVITAMIN INJ 10 ML in AMINO ACIDS/DEXT/LYTES 4.25-5% 2,000 ML IV SCH (10:05)
[2018-09-07] MEDS: ASPIRIN CHEW 81 MG TABLET PO SCH (10:34)
[2018-09-07] MEDS: FLUCONAZOLE INJ 200 MG in PREMIX 1 EACH IV SCH (12:59)
[2018-09-07] MEDS: FAT EMULSION 20% 250 ML IV SCH (15:14)
[2018-09-07] MEDS: MAGNESIUM CHLORIDE 64 MG TABLET PO SCH (21:38)
[2018-09-08] MEDS: INSULIN REGULAR 100 UNIT/ML SUBCUT SCH ×4 (00:33→18:23)
[2018-09-08] MEDS: LACTULOSE 20 GM/30 ML UDCUP PO SCH ×3 (02:48→17:13)
[2018-09-08 04:38] LABS: Basophils % 0.1 % (0.0-0.8); Eosinophils % 0.2 % (0.00-10.9); Hematocrit 31.3 VOL% (35.7-47.0); Hemoglobin 9.5 GM/DL (12.0-16.0); Immature Granulocytes % 1.8 %; Immature Granulocytes Absolute 0.35 #; Lymphocytes # 0.3 10*3/uL (1.4-4.0); Lymphocytes % 1.4 % (21.3-54.2); Mean Corpuscular HGB Conc 30.4 GM/DL (32-36); Mean Corpuscular Hemoglobin 27 PG (27-34); Mean Corpuscular Volume 88.4 FL (87-102); Monocytes # 1.1 10*3/uL (0.11-0.8); Monocytes % 5.4 % (1.7-12.7); Neutrophils % 91.1 % (38.7-73.9); Platelet Count 59 T/CUMM (130-400); Red Blood Count 3.54 MC/CUMM (3.8-5.5); Red Cell Distribution Width 21.3 % (9.3-17.3); White Blood Count 19.7 T/CUMM (4-12)
[2018-09-08 05:02] LABS: Albumin 2.2 G/DL (3.4-5.0); Bilirubin,Total 1.4 MG/DL (0.2-1.0); Osmolality,Calculated 276.2 MOS/KG (273-304); Potassium 4.8 MMOL/L (3.5-5.1); Total Protein 4.9 G/DL (6.4-8.3)
[2018-09-08 05:46] LABS: Band Neutrophils 1 % (0-10); Hypochromasia 1+; Lymphocytes 3 % (20-55); Segmented Neutrophils 93 % (50-85); Total Cells Counted 100
[2018-09-08 05:47] LABS: Microcytosis 1+; Ovalocytes Slight
[2018-09-08 05:48] LABS: Platelet Estimate Decreased
[2018-09-08] MEDS: LEVOTHYROXINE 100 MCG TABLET PO SCH (06:40)
[2018-09-08] MEDS: DORNASE ALFA 2.5 MG/2.5 ML VIAL RESP TX SCH ×2 (07:15→19:21)
[2018-09-08] MEDS: ALBUTEROL/IPRATROPIUM 3 ML NEB RESP TX SCH ×4 (07:15→19:21)
[2018-09-08] MEDS: LOSARTAN 25 MG TABLET PO SCH (09:56)
[2018-09-08] MEDS: METOPROLOL TARTRATE 25 MG TABLET PO SCH ×2 (09:56→21:30)
[2018-09-08] MEDS: APIXABAN 2.5 MG TABLET PO SCH ×2 (09:56→21:29)
[2018-09-08] MEDS: FLUoxetine 20 MG CAPSULE PO SCH (09:56)
[2018-09-08] MEDS: RIFAXIMIN 550 MG TABLET PO SCH ×2 (09:56→21:30)
[2018-09-08] MEDS: CALCIUM (CARBONATE) 600 MG TABLET PO SCH ×2 (09:56→21:30)
[2018-09-08] MEDS: LEVOFLOXACIN 500 MG TABLET PO SCH (09:56)
[2018-09-08] MEDS: MULTIVITAMIN (CENTRUM) TABLET PO SCH (09:57)
[2018-09-08] MEDS: LINACLOTIDE 145 MCG CAPSULE PO SCH (09:57)
[2018-09-08] MEDS: FOLIC ACID 1 MG TABLET PO SCH (09:57)
[2018-09-08] MEDS: TAMSULOSIN 0.4 MG CAPSULE PO SCH ×2 (09:57→21:29)
[2018-09-08] MEDS: FUROSEMIDE 20 MG TABLET PO SCH (09:57)
[2018-09-08] MEDS: POLYETHYLENE GLYCOL POWDER 17 GM PACK PO SCH (09:57)
[2018-09-08] MEDS: GABAPENTIN 100 MG CAPSULE PO SCH ×3 (09:57→21:30)
[2018-09-08] MEDS: MONTELUKAST 10 MG TABLET PO SCH (09:57)
[2018-09-08] MEDS: methylPREDNISolone SOD SUC 40 MG/1 ML VIAL IV SCH (09:58)
[2018-09-08] MEDS: ASPIRIN CHEW 81 MG TABLET PO SCH (09:58)
[2018-09-08] MEDS: PANTOPRAZOLE 40 MG VIAL IV SCH ×2 (09:58→21:30)
[2018-09-08] MEDS: BUDESONIDE/FORMOTEROL 160-4.5 INHALER 6 GM INH SCH ×2 (10:04→21:45)
[2018-09-08] MEDS: FLUCONAZOLE INJ 200 MG in PREMIX 1 EACH IV SCH (12:40)
[2018-09-08] MEDS: FAT EMULSION 20% 250 ML IV SCH (15:30)
[2018-09-08] MEDS: TRACE ELEMENTS (5) 1 ML, MULTIVITAMIN INJ 10 ML in AMINO ACIDS/DEXT/LYTES 4.25-5% 2,000 ML IV SCH ×2 (15:36→17:13)
[2018-09-08] MEDS: MAGNESIUM CHLORIDE 64 MG TABLET PO SCH (21:29)
[2018-09-09] MEDS: INSULIN REGULAR 100 UNIT/ML SUBCUT SCH ×5 (00:36→20:07)
[2018-09-09 02:47] LABS: Basophils % 0.1 % (0.0-0.8); Eosinophils % 0.2 % (0.00-10.9); Hematocrit 30.4 VOL% (35.7-47.0); Hemoglobin 9.3 GM/DL (12.0-16.0); Immature Granulocytes % 1.4 %; Immature Granulocytes Absolute 0.27 #; Lymphocytes # 0.3 10*3/uL (1.4-4.0); Lymphocytes % 1.5 % (21.3-54.2); Mean Corpuscular HGB Conc 30.6 GM/DL (32-36); Mean Corpuscular Hemoglobin 27 PG (27-34); Mean Corpuscular Volume 87.9 FL (87-102); Monocytes # 0.9 10*3/uL (0.11-0.8); Monocytes % 4.9 % (1.7-12.7); Neutrophils # 17.6 10*3/uL (1.4-7.4); Neutrophils % 91.9 % (38.7-73.9); Red Blood Count 3.46 MC/CUMM (3.8-5.5); Red Cell Distribution Width 21.5 % (9.3-17.3); White Blood Count 19.1 T/CUMM (4-12)
[2018-09-09 02:49] LABS: Platelet Count 47 T/CUMM (130-400)
[2018-09-09 03:01] LABS: Albumin 2.1 G/DL (3.4-5.0); Bilirubin,Total 1.2 MG/DL (0.2-1.0); Calcium 8.2 MG/DL (8.5-10.1); Potassium 4.6 MMOL/L (3.5-5.1); Total Protein 4.8 G/DL (6.4-8.3)
[2018-09-09 03:26] LABS: Band Neutrophils 6 % (0-10); Lymphocytes 3 % (20-55); Segmented Neutrophils 89 % (50-85)
[2018-09-09 03:27] LABS: Hypochromasia Slight; Ovalocytes 1+; Platelet Estimate Decreased
[2018-09-09 03:28] LABS: Total Cells Counted 100
[2018-09-09] MEDS: LACTULOSE 20 GM/30 ML UDCUP PO SCH ×3 (03:31→22:32)
[2018-09-09] MEDS: LEVOTHYROXINE 100 MCG TABLET PO SCH (06:55)
[2018-09-09] MEDS: ALBUTEROL/IPRATROPIUM 3 ML NEB RESP TX SCH ×4 (07:35→18:52)
[2018-09-09] MEDS: DORNASE ALFA 2.5 MG/2.5 ML VIAL RESP TX SCH ×2 (07:35→18:52)
[2018-09-09] MEDS: POLYETHYLENE GLYCOL POWDER 17 GM PACK PO SCH (08:39)
[2018-09-09] MEDS: APIXABAN 2.5 MG TABLET PO SCH (08:40)
[2018-09-09] MEDS: LINACLOTIDE 145 MCG CAPSULE PO SCH (08:40)
[2018-09-09] MEDS: CALCIUM (CARBONATE) 600 MG TABLET PO SCH ×2 (08:40→22:33)
[2018-09-09] MEDS: FLUoxetine 20 MG CAPSULE PO SCH (08:40)
[2018-09-09] MEDS: TAMSULOSIN 0.4 MG CAPSULE PO SCH ×2 (08:41→22:32)
[2018-09-09] MEDS: ASPIRIN CHEW 81 MG TABLET PO SCH (08:42)
[2018-09-09] MEDS: MULTIVITAMIN (CENTRUM) TABLET PO SCH (08:42)
[2018-09-09] MEDS: GABAPENTIN 100 MG CAPSULE PO SCH ×3 (08:42→22:38)
[2018-09-09] MEDS: RIFAXIMIN 550 MG TABLET PO SCH ×2 (08:43→22:32)
[2018-09-09] MEDS: METOPROLOL TARTRATE 25 MG TABLET PO SCH ×2 (08:43→22:33)
[2018-09-09] MEDS: FUROSEMIDE 20 MG TABLET PO SCH (08:43)
[2018-09-09] MEDS: LEVOFLOXACIN 500 MG TABLET PO SCH (08:44)
[2018-09-09] MEDS: FOLIC ACID 1 MG TABLET PO SCH (08:44)
[2018-09-09] MEDS: LOSARTAN 25 MG TABLET PO SCH (08:44)
[2018-09-09] MEDS: MONTELUKAST 10 MG TABLET PO SCH (08:44)
[2018-09-09] MEDS: methylPREDNISolone SOD SUC 40 MG/1 ML VIAL IV SCH (08:46)
[2018-09-09] MEDS: PANTOPRAZOLE 40 MG VIAL IV SCH ×2 (08:47→22:33)
[2018-09-09] MEDS: BUDESONIDE/FORMOTEROL 160-4.5 INHALER 6 GM INH SCH ×2 (09:43→22:34)
[2018-09-09] MEDS: FLUCONAZOLE INJ 200 MG in PREMIX 1 EACH IV SCH (11:07)
[2018-09-09] MEDS: VANCOMYCIN INJ 1,500 MG in SODIUM CHLORIDE 0.9% 500 ML IV SCH (11:56)
[2018-09-09] MEDS ORDERED: AMOXICILLIN 500 MG CAPSULE PO SCH (14:00)
[2018-09-09] MEDS: MICAFUNGIN 100 MG in SODIUM CHLORIDE 0.9% 100 ML IV SCH (14:55)
[2018-09-09] MEDS: FAT EMULSION 20% 250 ML IV SCH (15:08)
[2018-09-09] MEDS: MAGNESIUM CHLORIDE 64 MG TABLET PO SCH (22:32)
[2018-09-10] MEDS: TRACE ELEMENTS (5) 1 ML, MULTIVITAMIN INJ 10 ML in AMINO ACIDS/DEXT/LYTES 4.25-5% 2,000 ML IV SCH (00:10)
[2018-09-10] MEDS: VANCOMYCIN INJ 1,500 MG in SODIUM CHLORIDE 0.9% 500 ML IV SCH (00:11)
[2018-09-10] MEDS: INSULIN REGULAR 100 UNIT/ML SUBCUT SCH ×4 (00:28→17:09)
[2018-09-10] MEDS: LACTULOSE 20 GM/30 ML UDCUP PO SCH ×3 (03:25→17:09)
[2018-09-10 03:32] LABS: Basophils % 0.1 % (0.0-0.8); Eosinophils # 0.1 10*3/uL (0.0-0.87); Eosinophils % 0.3 % (0.00-10.9); Hematocrit 28.9 VOL% (35.7-47.0); Hemoglobin 9.3 GM/DL (12.0-16.0); Immature Granulocytes % 1.5 %; Immature Granulocytes Absolute 0.29 #; Lymphocytes # 0.5 10*3/uL (1.4-4.0); Lymphocytes % 2.7 % (21.3-54.2); Mean Corpuscular HGB Conc 32.2 GM/DL (32-36); Mean Corpuscular Hemoglobin 28 PG (27-34); Mean Corpuscular Volume 88.1 FL (87-102); Monocytes # 0.9 10*3/uL (0.11-0.8); Monocytes % 4.4 % (1.7-12.7); Neutrophils # 18.2 10*3/uL (1.4-7.4); Red Blood Count 3.28 MC/CUMM (3.8-5.5); Red Cell Distribution Width 21.7 % (9.3-17.3)
[2018-09-10 03:35] LABS: Platelet Count 42 T/CUMM (130-400)
[2018-09-10 03:56] LABS: Calcium 8.1 MG/DL (8.5-10.1); Osmolality,Calculated 288.5 MOS/KG (273-304); Potassium 4.5 MMOL/L (3.5-5.1)
[2018-09-10 03:59] LABS: Segmented Neutrophils 96 % (50-85); Total Cells Counted 100
[2018-09-10 04:00] LABS: Hypochromasia Slight; Platelet Estimate Decreased; Polychromasia Few
[2018-09-10] MEDS: LEVOTHYROXINE 100 MCG TABLET PO SCH (06:31)
[2018-09-10] MEDS: ALBUTEROL/IPRATROPIUM 3 ML NEB RESP TX SCH ×4 (07:12→19:05)
[2018-09-10] MEDS: DORNASE ALFA 2.5 MG/2.5 ML VIAL RESP TX SCH ×2 (07:19→19:00)
[2018-09-10] MEDS: POLYETHYLENE GLYCOL POWDER 17 GM PACK PO SCH (09:45)
[2018-09-10] MEDS: methylPREDNISolone SOD SUC 40 MG/1 ML VIAL IV SCH (09:46)
[2018-09-10] MEDS: FUROSEMIDE 20 MG TABLET PO SCH (09:47)
[2018-09-10] MEDS: ASPIRIN CHEW 81 MG TABLET PO SCH (09:47)
[2018-09-10] MEDS: LOSARTAN 25 MG TABLET PO SCH (09:47)
[2018-09-10] MEDS: CALCIUM (CARBONATE) 600 MG TABLET PO SCH ×2 (09:47→21:50)
[2018-09-10] MEDS: MULTIVITAMIN (CENTRUM) TABLET PO SCH (09:47)
[2018-09-10] MEDS: MONTELUKAST 10 MG TABLET PO SCH (09:47)
[2018-09-10] MEDS: GABAPENTIN 100 MG CAPSULE PO SCH ×3 (09:47→21:50)
[2018-09-10] MEDS: PANTOPRAZOLE 40 MG VIAL IV SCH ×2 (09:48→21:50)
[2018-09-10] MEDS: FOLIC ACID 1 MG TABLET PO SCH (09:48)
[2018-09-10] MEDS: METOPROLOL TARTRATE 25 MG TABLET PO SCH ×2 (09:48→21:50)
[2018-09-10] MEDS: TAMSULOSIN 0.4 MG CAPSULE PO SCH ×2 (09:48→21:50)
[2018-09-10] MEDS: FLUoxetine 20 MG CAPSULE PO SCH (09:48)
[2018-09-10] MEDS: RIFAXIMIN 550 MG TABLET PO SCH ×2 (09:48→21:50)
[2018-09-10] MEDS: BUDESONIDE/FORMOTEROL 160-4.5 INHALER 6 GM INH SCH ×2 (09:48→21:51)
[2018-09-10] MEDS: LINACLOTIDE 145 MCG CAPSULE PO SCH (09:57)
[2018-09-10] MEDS: AMPICILLIN INJ 2,000 MG in SODIUM CHLORIDE 0.9% 100 ML IV SCH ×4 (11:34→23:40)
[2018-09-10] MEDS: MICAFUNGIN 100 MG in SODIUM CHLORIDE 0.9% 100 ML IV SCH (14:43)
[2018-09-10] MEDS: FAT EMULSION 20% 250 ML IV SCH (15:01)
[2018-09-10] MEDS ORDERED: TAMSULOSIN 0.4 MG CAPSULE PO SCH (21:00)
[2018-09-10] MEDS: MAGNESIUM CHLORIDE 64 MG TABLET PO SCH (21:50)
[2018-09-11] MEDS: INSULIN REGULAR 100 UNIT/ML SUBCUT SCH ×3 (00:12→12:02)
[2018-09-11] MEDS: LACTULOSE 20 GM/30 ML UDCUP PO SCH ×2 (01:33→10:12)
[2018-09-11] MEDS: AMPICILLIN INJ 2,000 MG in SODIUM CHLORIDE 0.9% 100 ML IV SCH ×3 (03:52→10:11)
[2018-09-11 03:57] LABS: Basophils % 0.1 % (0.0-0.8); Eosinophils % 0.1 % (0.00-10.9); Hematocrit 30.3 VOL% (35.7-47.0); Hemoglobin 9.4 GM/DL (12.0-16.0); Immature Granulocytes % 0.9 %; Immature Granulocytes Absolute 0.17 #; Lymphocytes # 0.8 10*3/uL (1.4-4.0); Lymphocytes % 4.3 % (21.3-54.2); Mean Corpuscular Hemoglobin 27 PG (27-34); Mean Corpuscular Volume 88.1 FL (87-102); Monocytes # 0.8 10*3/uL (0.11-0.8); Monocytes % 4.2 % (1.7-12.7); Neutrophils # 16.9 10*3/uL (1.4-7.4); Neutrophils % 90.4 % (38.7-73.9); Platelet Count 42 T/CUMM (130-400); Red Blood Count 3.44 MC/CUMM (3.8-5.5); Red Cell Distribution Width 22.3 % (9.3-17.3); White Blood Count 18.7 T/CUMM (4-12)
[2018-09-11 04:34] LABS: Albumin 2.2 G/DL (3.4-5.0); Bilirubin,Total 1.2 MG/DL (0.2-1.0); Calcium 8.4 MG/DL (8.5-10.1); Osmolality,Calculated 292.3 MOS/KG (273-304); Potassium 4.9 MMOL/L (3.5-5.1); Total Protein 5.4 G/DL (6.4-8.3)
[2018-09-11 04:49] LABS: Band Neutrophils 5 % (0-10); Hypochromasia 2+; Lymphocytes 5 % (20-55); Platelet Estimate Decreased; Segmented Neutrophils 86 % (50-85); Total Cells Counted 100
[2018-09-11 04:50] LABS: Anisocytosis 2+; Macrocytosis 2+; Ovalocytes 1+; Target Cells 2+
[2018-09-11] MEDS: LEVOTHYROXINE 100 MCG TABLET PO SCH (06:20)
[2018-09-11] MEDS: ALBUTEROL/IPRATROPIUM 3 ML NEB RESP TX SCH ×2 (07:20→11:29)
[2018-09-11] MEDS: DORNASE ALFA 2.5 MG/2.5 ML VIAL RESP TX SCH (07:20)
[2018-09-11] MEDS: methylPREDNISolone SOD SUC 40 MG/1 ML VIAL IV SCH (08:29)
[2018-09-11] MEDS: LOSARTAN 25 MG TABLET PO SCH (08:29)
[2018-09-11] MEDS: LINACLOTIDE 145 MCG CAPSULE PO SCH (08:29)
[2018-09-11] MEDS: GABAPENTIN 100 MG CAPSULE PO SCH (08:29)
[2018-09-11] MEDS: TAMSULOSIN 0.4 MG CAPSULE PO SCH (08:29)
[2018-09-11] MEDS: FLUoxetine 20 MG CAPSULE PO SCH (08:29)
[2018-09-11] MEDS: MONTELUKAST 10 MG TABLET PO SCH (08:29)
[2018-09-11] MEDS: ASPIRIN CHEW 81 MG TABLET PO SCH (08:29)
[2018-09-11] MEDS: RIFAXIMIN 550 MG TABLET PO SCH (08:29)
[2018-09-11] MEDS: POLYETHYLENE GLYCOL POWDER 17 GM PACK PO SCH (08:30)
[2018-09-11] MEDS: CALCIUM (CARBONATE) 600 MG TABLET PO SCH (08:30)
[2018-09-11] MEDS: FOLIC ACID 1 MG TABLET PO SCH (08:30)
[2018-09-11] MEDS: PANTOPRAZOLE 40 MG VIAL IV SCH (08:30)
[2018-09-11] MEDS: METOPROLOL TARTRATE 25 MG TABLET PO SCH (08:30)
[2018-09-11] MEDS: FUROSEMIDE 20 MG TABLET PO SCH (08:30)
[2018-09-11] MEDS: BUDESONIDE/FORMOTEROL 160-4.5 INHALER 6 GM INH SCH (08:31)
[2018-09-11] MEDS: MULTIVITAMIN (CENTRUM) TABLET PO SCH (08:41)
[2018-09-11 11:56] VITALS: BP 127/69
== END 2018-09-11 12:12 | DRG 981 ==
LOC: N.5E 11:46 → N.TELES 17:04
PROVIDERS: ADMIT Internal Medicine Pulmonary Disease; ATTEND Internal Medicine Pulmonary Disease